=== PATIENT | male | born 1975 | race African-American/Black ===

== ENCOUNTER 2023-07-27 09:30 | Inpatient (IN) | payer OTHER ==
[~2023-07-27] VITALS: Ht 177.8 cm; Wt 104.2 kg
[2023-07-27 09:59] VITALS: PULSE 96; RESP 20; O2SAT 98
[2023-07-27 10:05] LABS: Basophils # (auto) 0.1 10 ^3/uL (0-0.2); Eosinophils # (auto) 0.1 10 ^3/uL (0-0.8); Eosinophils % (auto) 0.8 % (0.0-7.0); Hemoglobin 13.6 g/dL (13.5-17.5); Monocytes # (auto) 0.7 10 ^3/uL (0-1.3); Red Cell Distribution Width 15.6 % (11.8-14.3)
[2023-07-27 10:07] LABS: Hematocrit 41.5 % (41.0-53.0); Lymphocytes # (auto) 1.1 10 ^3/uL (0.4-5.4); Lymphocytes % (auto) 13.9 % (10.0-50.0); Mean Corpuscular Hemoglobin 26.6 pg (28.0-32.0); Mean Corpuscular Hgb Conc. 32.8 g/dL (32.0-36.0); Mean Corpuscular Volume 81.1 fL (80.0-100.0); Monocytes % (auto) 8.9 % (0.0-12.0); Neutrophils % (auto) 75.4 % (37.0-80.0); Red Blood Cells 5.11 10^6/uL (4.5-5.90)
[2023-07-27 10:16] LABS: Chloride 106 mmol/L (98-107); Potassium 3.7 mmol/L (3.5-5.1); Sodium 139 mmol/L (136-145)
[2023-07-27 10:17] LABS: Anion Gap 6 (5-15); Carbon Dioxide 27 mmol/L (20-30)
[2023-07-27 10:22] LABS: BUN/Creatinine Ratio 5.3 (10.0-20.0); Blood Urea Nitrogen 10 mg/dL (9-23); Glucose 172 mg/dL (74-106)
[2023-07-27] MEDS: ONDANSETRON HCL 4 MG/2 ML VIAL IV ONE (10:48)
[2023-07-27] MEDS: SODIUM CHLORIDE 0.9% 1,000 ML IV ONE ×2 (10:48→13:37)
[2023-07-27] MEDS: PANTOPRAZOLE 40 MG/10 ML VIAL INJ IV ONE (10:48)
[2023-07-27 12:53] LABS: Urine Bacteria None Seen /hpf (None Seen)
[2023-07-27 13:00] LABS: Urine Blood 2+ /uL (Negative); Urine Clarity Clear (Clear); Urine Color Light-Yellow (Yellow); Urine Protein, UAD 3+ (Negative); Urine Specific Gravity 1.012 (1.001-1.035); Urine Urobilinogen Normal (Negative); Urine WBC 3 /hpf (0 - 3)
[2023-07-27] MEDS ORDERED: DEXTROSE (50%) 50ML SYRG IV PRN ×2 (13:15)
[2023-07-27] MEDS ORDERED: MORPHINE SULFATE INJ 2 MG/ml SYRG IV PRN (13:15)
[2023-07-27] MEDS ORDERED: NITROGLYCERIN 0.4 MG SL TAB SL PRN (13:15)
[2023-07-27 13:50] LABS: Triglycerides 134 mg/dL (< 150)
[2023-07-27 13:51] LABS: LDL Cholesterol 155 mg/dL (< 100)
[2023-07-27 13:52] LABS: Cholesterol 223 mg/dL (< 200); HDL Cholesterol 45 mg/dL (40-59)
[2023-07-27] MEDS: SODIUM CHLORIDE 0.9% 1,000 ML IV SCH (15:35)
[2023-07-27] MEDS: METOCLOPRAMIDE HCL 5MG/ml INJ 2ml VIAL IV PRN (16:29)
[2023-07-27] MEDS ORDERED: InsuLIN REG 1unit/0.01ml Soln (100units/ml) SC SCH (17:00)
[2023-07-27] MEDS ORDERED: ACCU-CHEK COMFORT CURVE STRIP VI SCH (17:00)
[2023-07-27] MEDS: ACCU-CHEK COMFORT CURVE STRIP VI SCH (17:20)
[2023-07-27] MEDS: InsuLIN REG 1unit/0.01ml Soln (100units/ml) SC SCH (17:26)
[2023-07-27] MEDS: amLODIPine BESYLATE 5 MG TAB PO ONE (18:31)
[2023-07-27] MEDS: ONDANSETRON HCL 4 MG/2 ML VIAL IV PRN (20:17)
[2023-07-27 20:39] VITALS: PULSE 102; RESP 16; O2SAT 95
[2023-07-28 05:35] LABS: Basophils # (auto) 0.1 10 ^3/uL (0-0.2); Eosinophils # (auto) 0.2 10 ^3/uL (0-0.8); Eosinophils % (auto) 2.5 % (0.0-7.0); Hemoglobin 11.7 g/dL (13.5-17.5); Lymphocytes # (auto) 1.5 10 ^3/uL (0.4-5.4); Neutrophils # (auto) 5.5 10 ^3/uL (1.6-8.6); White Blood Cell 8.1 10^3/uL (4.4-10.8)
[2023-07-28 05:41] LABS: Basophils % (auto) 1.2 % (0.0-2.0); Hematocrit 35.9 % (41.0-53.0); Lymphocytes % (auto) 18.7 % (10.0-50.0); Mean Corpuscular Hemoglobin 26.8 pg (28.0-32.0); Mean Corpuscular Hgb Conc. 32.6 g/dL (32.0-36.0); Mean Corpuscular Volume 82.1 fL (80.0-100.0); Monocytes # (auto) 0.8 10 ^3/uL (0-1.3); Monocytes % (auto) 9.6 % (0.0-12.0); Nucleated Red Blood Cells % 0.1 %; Red Blood Cells 4.37 10^6/uL (4.5-5.90); Red Cell Distribution Width 15.3 % (11.8-14.3)
[2023-07-28 05:49] LABS: Alanine Aminotransferase 15 U/L (7-40); Albumin 2.8 g/dL (3.2-4.8); Alkaline Phosphatase 96 U/L (46-116); Anion Gap 8 (5-15); Aspartate Aminotransferase 25 U/L (13-40); Blood Urea Nitrogen 6 mg/dL (9-23); Calcium 7.9 mg/dL (8.5-10.1); Carbon Dioxide 23 mmol/L (20-30); Chloride 111 mmol/L (98-107); Glucose 100 mg/dL (74-106); Potassium 3.5 mmol/L (3.5-5.1); Sodium 142 mmol/L (136-145)
[2023-07-28 05:50] LABS: Total Protein 5.4 g/dL (5.7-8.2)
[2023-07-28 07:25] VITALS: PULSE 92; RESP 19; O2SAT 96
[2023-07-28 08:00] VITALS: PULSE 92
[2023-07-28 08:40] VITALS: BP 163/90; PULSE 92; PULSE 96; RESP 18; TEMP 98.5; O2SAT 92
[2023-07-28] MEDS: PANTOPRAZOLE 40 MG/10 ML VIAL INJ IV SCH (10:37)
[2023-07-28] MEDS: amLODIPine BESYLATE 5 MG TAB PO SCH (10:37)
[2023-07-28] MEDS: ENOXAPARIN SOD 40 MG/0.4 ML SYRINGE SC SCH (10:38)
[2023-07-28] MEDS: hydrALAZINE HCL 20 MG/ML VL IV PRN (12:16)
[2023-07-28 12:40] VITALS: BP 164/98; PULSE 101; RESP 18; TEMP 98.7; O2SAT 96
[2023-07-28 16:30] VITALS: BP 165/98; PULSE 105; RESP 18; TEMP 98.3; O2SAT 98
[2023-07-28] MEDS: SOD CHL 0.9%/ KCL 20MEQ 1,000 ML IV ONE (17:06)
[2023-07-28] MEDS: ACETAMINOPHEN 325 MG TAB PO PRN (20:14)
[2023-07-28 21:00] VITALS: BP 148/78; PULSE 96; RESP 19; TEMP 99; O2SAT 97
[2023-07-28] MEDS: METOCLOPRAMIDE HCL 10 MG TAB PO SCH (21:43)
[2023-07-29 05:00] VITALS: BP 139/72; PULSE 93; RESP 20; TEMP 99; O2SAT 98
[2023-07-29 09:00] VITALS: BP 156/86; PULSE 96; RESP 16; TEMP 98; O2SAT 97
[2023-07-29] MEDS: amLODIPine BESYLATE 5 MG TAB PO SCH (09:29)
[2023-07-29] MEDS ORDERED: METF-370 PO (12:20)
[2023-07-29] MEDS ORDERED: PIO30T PO (12:20)
[2023-07-29] MEDS ORDERED: AML5T PO (12:20)
[2023-07-29] MEDS ORDERED: ATOR20TA50 PO (12:20)
[2023-07-29] MEDS ORDERED: METO10TA4 PO (12:20)
[2023-07-29] MEDS ORDERED: CHLO25TA2 PO (12:20)
[2023-07-29] MEDS ORDERED: TEMA15CA2 PO (12:25)
== END 2023-07-29 15:03 | disposition home or self-care (01) | DRG 73 ==
LOC: ER 09:30 → TELE 13:37 → TELE-WESTW 07-28 08:16 → WEST WING 07-28 16:42
PROVIDERS: ADMIT Nurse Practitioner Family; ATTEND Nurse Practitioner Acute Care
DX: E11.43 Type 2 diabetes mellitus with diabetic autonomic (poly)neuropathy (principal); N17.0 Acute kidney failure with tubular necrosis; I13.0 Hypertensive heart and chronic kidney disease with heart failure and stage 1 through stage 4 chronic kidney disease, or unspecified chronic kidney disease; I50.40 Unspecified combined systolic (congestive) and diastolic (congestive) heart failure; I31.39 Other pericardial effusion (noninflammatory); K31.84 Gastroparesis; N18.32 Chronic kidney disease, stage 3b; E11.22 Type 2 diabetes mellitus with diabetic chronic kidney disease; E11.65 Type 2 diabetes mellitus with hyperglycemia; E66.01 Morbid (severe) obesity due to excess calories; E78.00 Pure hypercholesterolemia, unspecified; E87.6 Hypokalemia; Z68.33 Body mass index [BMI] 33.0-33.9, adult; Z91.148 Patient's other noncompliance with medication regimen for other reason; Z82.49 Family history of ischemic heart disease and other diseases of the circulatory system
CPT/HCPCS: 36415; 74176; 80048; 80053; 80061; 81001; 82962; 83036; 83930; 84443; 85025; 93005; 93306; 96361; 96374; 96375; C9113; G0378; J1815; J2405

== ENCOUNTER 2024-04-13 11:37 | Emergency (ER) | payer OTHER ==
[~2024-04-13] VITALS: Ht 182.9 cm; Wt 111.1 kg
[~2024-04-13 11:37] MED LIST: AML5T PO; ATOR20TA50 PO; CHLO25TA2 PO; METF-370 PO; METO10TA4 PO; PIO30T PO; TEMA15CA2 PO
--- NOTE | 2024-04-13 11:53 | ED.PDOC ---
GI ASSESSMENT HPI Comments 48 y/o M with PMHX of HTN, HLD, and DM presents to the ED with CC of abdominal pain. Patient states, that he has been experiencing abdominal pain with associated symptoms of nausea, vomiting, and intermittent diarrhea. Patient relays, that he has experienced similar symptoms in the past about a year ago. Patient comments that he believes symptoms are due to and kids being sick at home. Patient denies social history. Patient denies fever, chills, headache, cough, sore throat, or nasal congestion. Time Seen by MD: 11:48 Primary Care Provider: RIGOBERTO TR[place]P [place] Reviewed Notes: Nurses Notes, Medications, Allergies Allergies: Coded Allergies: NO KNOWN ALLERGIES (Unverified , 07/27/23) Home Meds Active Scripts Pantoprazole Sodium Sesquihydr (Protonix) 40 Mg Tab, 40 MG PO DAILY, #30 TAB Prov:YONATHAN LLOYD MD 04/13/24 Ondansetron Odt 4MG Tab (ZOFRAN PO) 4 Mg Tb, 4 MG PO Q8HP PRN for 7 Days, #21 TAB ODT TAB-DISSOLVE IN MOUTH, THEN SWALLOW Prov:YONATHAN LLOYD MD 04/13/24 Temazepam (Restoril) 15 Mg Cp, 1 CAP PO QPM for 7 Days, #7 CAP 1 Refill Prov:OSCAR SALINAS AGILE DEVELOPER 07/29/23 Chlorthalidone (Chlorthalidone) 25 Mg Tab, 25 MG PO DAILY for 60 Days, #60 TAB Prov:OSCAR SALINAS AGILE DEVELOPER 07/29/23 Atorvastatin Calcium (ATORVASTATIN CALCIUM) 20 Mg Tab, 20 MG PO DAILY for 60 Days, #60 TAB Prov:OSCAR SALINAS AGILE DEVELOPER 07/29/23 Pioglitazone Hydrochloride (ACTOS TABLET) 30 Mg Tb, 1 TAB PO DAILY, #90 TAB 1 Refill Prov:OSCAR SALINAS AGILE DEVELOPER 07/29/23 Metformin Hydrochloride (Metformin Hcl) 500 Mg Tab, 1 TAB PO BID, #60 TAB 3 Refills Prov:OSCAR SALINAS AGILE DEVELOPER 07/29/23 Metoclopramide HCl (Metoclopramide Hydrochlor) 10 Mg Tab, 5 MG PO Q8HR for 60 Days, #90 TAB Prov:OSCAR SALINAS AGILE DEVELOPER 07/29/23 Amlodipine Besylate (NORVASC TABLET) 5 Mg Tb, 10 MG PO DAILY for 60 Days, #120 TAB Prov:RAYMONDCECILIA GarzaMOORE NP 07/29/23 Information Source: Patient Mode of Arrival: Ambulatory Timing: Days Duration: Since onset Prehospital treatment: None Quality: None Vomitus: Watery Stool: Watery Severity: Mild Recent: None Recent Hx of: Diabetes Pain Location: Diffuse Modifying Factors: Nothing Associated sign and symptoms: Nausea, Vomiting, Diarrhea Past Medical History PAST MEDICAL HISTORY: DM, HTN Surgical History: Unknown Family History Family History: Unknown, Family hx of heart gianfranco Social History Smoker: Non-Smoker Alcohol: Rarely Drugs: Denies Drug Use Lives In: Home Constitutional: denies: chills, diaphoresis, fatigue, fever, malaise, sweats, weakness, others EENTM: denies: blurred vision, double vision, ear bleeding, ear discharge, ear drainage, ear pain, ear ringing, eye pain, eye redness, hearing loss, mouth pain, mouth swelling, nasal discharge, nose bleeding, nose congestion, nose pain, photophobia, tearing, throat pain, throat swelling, voice changes, others Respiratory: denies: cough, hemoptysis, orthopnea, SOB at rest, shortness of breath, SOB with excertion, stridor, wheezing, others Cardiovascular: denies: chest pain, dizzy spells, diaphoresis, Dyspnea on exertion, edema, irregular heart beat, left arm pain, lightheadedness, palpita tions, PND, syncope, others Gastrointestinal: reports: abdominal pain, diarrhea, nausea, poor appetite, vomiting; denies: abdomen distended, blood streaked bowels, constipated, dysphagia, difficulty swallowing, hematemesis, melena, poor fluid intake, rectal bleeding, rectal pain, others Genitourinary: denies: burning, dysuria, flank pain, frequency, hematuria, incontinence, penile discharge, penile sore, pain, testicle pain, testicle swelling, urgency, others Neurological: denies: dizziness, fainting, headache, left sided numbness, left sided weakness, numbness, paresthesia, pre-existing deficit, right sided numbness, right sided weakness, seizure, speech problems, tingling, tremors, weakness, others Musculoskeletal: denies: back pain, gout, joint pain, joint swelling, muscle pain, muscle stiffness, neck pain, others Integumetry: denies: bruises, change in color, change in hair/nails, dryness, laceration, lesions, lumps, rash, wounds, others Allergic/Immunocompromised: denies: Difficulty Healing, Frequent Infections, Hives, Itching, others Hematologic/Lymphatic: denies: anemia, blood clots, easy bleeding, easy bruising, swollen glands, others Endocrine: denies: excessive hunger, excessive sweating, excessive thirst, excessive urination, flushing, intolerance to cold, intolerance to heat, unexplained weight gain, unexplained weight loss, others Psychiatric: denies: anxiety, bipolar disorder, depression, hopeless, panic disorder, schizophrenia, sleepless, suicidal, others All Other Systems: Reviewed and Negative Physical Exam General Appearance: Mild Distress HEENT: Normal ENT Inspection, Pharynx Normal, TMs Normal Neck: Full Range of Motion, Non-Tender, Normal, Normal Inspection Respiratory: Chest Non-Tender, Lungs Clear, No Accessory Muscle Use, No Respiratory Distress, Normal Breath Sounds Cardiovascular: No Edema, No JVD, No Murmur, No Gallop, Normal Peripheral Pulses, Regular Rate/Rhythm Breast Exam: Deferred Gastrointestinal: No Organomegaly, Non Tender, No Pulsatile Mass, Normal Bowel Sounds, Soft Genitalia: Deferred Pelvic: Deferred Rectal: Deferred Extremities: No calf tenderness, Normal capillary refill, Normal inspection, Normal range of motion, Non-tender, No pedal edema Musculoskeletal : Apperance: Normal Neurologic: Alert, plug making operator II-XII nml as Tested, No Motor Deficits, Normal Affect, Normal Mood, No Sensory Deficits Cerebellar Function: Normal Reflexes: Normal Skin: Dry, Normal Color, Warm Lymphatic: No Adenopathy Was a procedure done? Was a procedure done?: No GI differential Dx Differential Diagnosis: Gastritis/PUD, Gastroenteritis, Electrolyte Imbalance, Food Poisoning, Bacterial, Viral X-Ray, Labs, Meds, VS Vital Signs Date Time Temp Pulse Resp B/P (MAP) Pulse Ox O2 Delivery O2 Flow Rate FiO2 04/13/24 15:20 99.1 98 17 169/101 (123) 98 99.1 04/13/24 15:20 169/101 04/13/24 12:30 98.0 100 17 174/105 (128) 98 98.0 04/13/24 12:30 Room Air* 0 21 04/13/24 12:24 174/105 04/13/24 12:08 99.3 98 16 190/100 (130) 95 Lab Test 04/13/24 12:01 04/13/24 11:59 04/13/24 11:58 Range/Units POC Glucose 333 H 70-106 mg/dl White Blood Count 8.7 4.4-10.8 10^3/uL Red Blood Count 4.50 4.5-5.90 10^6/uL Hemoglobin 13.1 L 13.5-17.5 g/dL Hematocrit 38.6 L 41.0-53.0 % Mean Corpuscular Volume 86.0 80.0-100.0 fL Mean Corpuscular Hemoglobin 29.2 28.0-32.0 pg Mean Corpuscular Hemoglobin Concent 34.0 32.0-36.0 g/dL Red Cell Distribution Width 14.5 H 11.8-14.3 % Platelet Count 259 140-450 10^3/uL Mean Platelet Volume 8.1 6.9-10.8 fL Neutrophils (%) (Auto) 77.3 37.0-80.0 % Lymphocytes (%) (Auto) 7.2 L 10.0-50.0 % Monocytes (%) (Auto) 14.8 H 0.0-12.0 % Eosinophils (%) (Auto) 0.1 0.0-7.0 % Basophils (%) (Auto) 0.6 0.0-2.0 % Neutrophils # (Auto) 6.7 1.6-8.6 10 ^3/uL Lymphocytes # (Auto) 0.6 0.4-5.4 10 ^3/uL Monocytes # (Auto) 1.3 0-1.3 10 ^3/uL Eosinophils # (Auto) 0 0-0.8 10 ^3/uL Basophils # (Auto) 0 0-0.2 10 ^3/uL Nucleated Red Blood Cells 0.1 % Sodium Level 135 L 136-145 mmol/L Potassium Level 4.3 3.5-5.1 mmol/L Chloride Level 101 98-107 mmol/L Carbon Dioxide Level 25 20-31 mmol/L Anion Gap 9 5-15 Blood Urea Nitrogen 31 H 9-23 mg/dL Creatinine 2.88 H 0.700-1.30 mg/dL Glomerular Filtration Rate Calc 26 >90 mL/min BUN/Creatinine Ratio 10.8 10.0-20.0 Serum Glucose 356 H 74-106 mg/dL Calcium Level 9.5 8.7-10.4 mg/dL Total Bilirubin 0.6 0.2-1.0 mg/dL Aspartate Amino Transferase (AST) 38 13-40 U/L Alanine Aminotransferase (ALT) 27 7-40 U/L Alkaline Phosphatase 134 H 46-116 U/L Total Protein 8.1 5.7-8.2 g/dL Albumin 4.2 3.2-4.8 g/dL Lipase 37 12-53 U/L Urine Color Light-yellow Yellow Urine Clarity Clear Clear Urine pH 6.5 5.0-9.0 Urine Specific [place] 1.011 1.001-1.035 Urine Protein 3+ H Negative Urine Ketones Trace Negative Urine Blood 2+ H Negative /uL Urine Nitrite Negative Negative Urine Bilirubin Negative Negative Urine Urobilinogen Normal Negative mg/dL Urine Leukocyte Esterase Negative Negative /uL Urine RBC 17 0 - 3 /hpf Urine Microscopic WBC 1 0-3 /HPF Urine Squamous Epithelial Cells None seen <5 /hpf Urine Bacteria None seen None Seen /hpf Urine Hyaline Casts Few 0 - 2 /lpf Urine Glucose 4+ H Normal mg/dL Current Medications Medications (Trade) Dose Ordered Sig/Amisha Route Start Time Stop Time Status Last Admin Ondansetron HCl (Zofran) 4 mg ONCE ONCE IV 04/13/24 12:00 04/13/24 12:01 DC 04/13/24 12:24 Clonidine HCl (Catapres Tablet) 0.2 mg ONCE ONCE PO 04/13/24 12:15 04/13/24 12:16 DC 04/13/24 12:24 CT ABD PEL: FINDINGS: Lower Chest: Unremarkable. Hepatobiliary: Hepatic steatosis. Spleen: Unremarkable. Pancreas: Unremarkable. Adrenal Glands: Unremarkable. tract: The kidneys are normal in size bilaterally without hydronephrosis or nephrolithiasis. Mild bilateral perinephric fat stranding noted. The urinary bladder is unremarkable. GI tract: The stomach is grossly normal in appearance. No evidence of small bowel obstruction. The large bowel is unremarkable. The appendix is normal. Lymphatics: No mesenteric, retroperitoneal or periportal lymphadenopathy. Vasculature: The abdominal aorta is normal in in caliber. Pelvic Organs: Unremarkable Bones/soft tissues: No acute abnormality. Stable degenerative disc disease at L3-L4 with stable mild focal depression of the adjacent endplates reflecting Schmorl's nodes. Other: None. IMPRESSION: 1. No CT evidence for acute intra-abdominal or intrapelvic process. 2. Mild symmetric bilateral perinephric fat stranding that is a nonspecific finding likely idiopathic in this patient. No hydronephrosis to suggest pyelonephritis or obstruction. 3. Hepatic steatosis. ATED BY: HELEN CHENG MD DICTATED DATE/TIME: 04/13/24 1235 SIGNED BY: HELEN CHENG MD SIGNED DATE/TIME: 04/13/24 1235 CC: The patient's CBC is within normal limits The chemistry panel is within normal limits The urine test is negative for any infection At this time, the patient was being discharged The patient had episodes of hypertension that was somewhat uncontrolled in the emergency department's The patient states that he did not take his medications this morning The patient was given clonidine 0.2 mg by mouth The patient was also given Zofran 4 mg IV push The patient was given a prescription of Zofran The patient will return to the emergency department's condition worsens Images Reviewed?: Images reviewed and evaluated by me Time of 1ST Reevaluation: 12:28 Reevaluation 1ST: Unchanged Patient Education/Counseling: Diagnosis, Treatment, Prognosis, Need For Follow Up Family Education/Counseling: No Family Present Departure 1 Departure Time of Disposition: 16:53 Impression: Primary Impression: Gastroparesis Additional Impression: Hypertensive urgency Disposition: 01 HOME / SELF CARE / HOMELESS Condition: Fair e-Prescriptions Pantoprazole Sodium Sesquihydr (Protonix) 40 Mg Tab 40 MG PO DAILY, #30 TAB Prov: YONATHAN LLOYD MD 04/13/24 Ondansetron Odt 4MG Tab (ZOFRAN PO) 4 Mg Tb 4 MG PO Q8HP PRN for 7 Days, #21 TAB ODT TAB-DISSOLVE IN MOUTH, THEN SWALLOW Prov: YONATHAN LLOYD MD 04/13/24 Discharged With: Self Critical Care Note Critical Care Time?: No Stability Stability form required: No Heart Score Heart Score: Heart Score Response (Comments) Value History N/A 0 EKG N/A 0 Age N/A 0 Risk Factors N/A 0 Troponin N/A 0 Total 0 I personally scribed for YONATHAN LLOYD MD ([email or web address]) on 04/13/24 at 11:53. Electronically submitted by Radha Eaton ([email or web address]). I personally scribed for YONATHAN LLOYD MD ([email or web address]) on 04/13/24 at 13:11. Electronically submitted by Radha Eaton [email or web address]). YONATHAN LLOYD MD Apr 13, 2024 11:53
[2024-04-13 12:16] LABS: Basophils # (auto) 0 10 ^3/uL (0-0.2); Basophils % (auto) 0.6 % (0.0-2.0); Eosinophils # (auto) 0 10 ^3/uL (0-0.8); Eosinophils % (auto) 0.1 % (0.0-7.0); Hematocrit 38.6 % (41.0-53.0); Hemoglobin 13.1 g/dL (13.5-17.5); Lymphocytes # (auto) 0.6 10 ^3/uL (0.4-5.4); Lymphocytes % (auto) 7.2 % (10.0-50.0); Mean Corpuscular Hemoglobin 29.2 pg (28.0-32.0); Monocytes # (auto) 1.3 10 ^3/uL (0-1.3); Monocytes % (auto) 14.8 % (0.0-12.0); Neutrophils # (auto) 6.7 10 ^3/uL (1.6-8.6); Neutrophils % (auto) 77.3 % (37.0-80.0); Nucleated Red Blood Cells % 0.1 %; Platelet Count (auto) 259 10^3/uL (140-450); Red Cell Distribution Width 14.5 % (11.8-14.3); White Blood Cell 8.7 10^3/uL (4.4-10.8)
[2024-04-13] MEDS: cloNIDine HCL 0.1 MG TAB PO ONE (12:24)
[2024-04-13] MEDS: ONDANSETRON HCL 4 MG/2 ML VIAL IV ONE (12:24)
--- NOTE | 2024-04-13 12:37 | DVH ---
Procedure: CT CT AB PEL WO CON-NO ORAL OR IV 04/13/2024 12:00 PM Indication: vomiting Comparison Study: CT scan dated 07/27/2023 Technique: Axial images were obtained and reformatted in coronal and sagittal planes. All CT scans at this medical facility are performed using dose modulation techniques as appropriate t o a performed exam including the following: Automated exposure control was utilized; adjustment of th e MA and/or KV according to patient size; and use of iterative reconstruction technique. CT Dose: CTDI volume is 25 mGy. Dose-length product is 1470 mGy*cm FINDINGS: Lower Chest: Unremarkable. Hepatobiliary: Hepatic steatosis. Spleen: Unremarkable. Pancreas: Unremarkable. Adrenal Glands: Unremarkable. tract: The kidneys are normal in size bilaterally without hydronephrosis or nephrolithiasis. Mild bilateral perinephric fat stranding noted. The urinary bladder is unremarkable. GI tract: The stomach is grossly normal in appearance. No evidence of small bowel obstruction. The la rge bowel is unremarkable. The appendix is normal. Lymphatics: No mesenteric, retroperitoneal or periportal lymphadenopathy. Vasculature: The abdominal aorta is normal in in caliber. Pelvic Organs: Unremarkable Bones/soft tissues: No acute abnormality. Stable degenerative disc disease at L3-L4 with stable mild focal depression of the adjacent endplates reflecting Schmorl's nodes. Other: None. IMPRESSION: 1. No CT evidence for acute intra-abdominal or intrapelvic process. 2. Mild symmetric bilateral perinephric fat stranding that is a nonspecific finding likely idiopathic in this patient. No hydronephrosis to suggest pyelonephritis or obstruction. 3. Hepatic steatosis.
[2024-04-13 12:38] LABS: Alanine Aminotransferase 27 U/L (7-40); Albumin 4.2 g/dL (3.2-4.8); Anion Gap 9 (5-15); Aspartate Aminotransferase 38 U/L (13-40); BUN/Creatinine Ratio 10.8 (10.0-20.0); Calcium 9.5 mg/dL (8.7-10.4); Carbon Dioxide 25 mmol/L (20-31); Chloride 101 mmol/L (98-107); Lipase 37 U/L (12-53); Potassium 4.3 mmol/L (3.5-5.1)
[2024-04-13 12:39] LABS: Alkaline Phosphatase 134 U/L (46-116); Bilirubin, Total 0.6 mg/dL (0.2-1.0); Blood Urea Nitrogen 31 mg/dL (9-23); Glucose 356 mg/dL (74-106); Sodium 135 mmol/L (136-145); Total Protein 8.1 g/dL (5.7-8.2)
[2024-04-13 15:13] LABS: Urine Bacteria None Seen /hpf (None Seen)
[2024-04-13 15:27] LABS: Urine Blood 2+ /uL (Negative); Urine Clarity Clear (Clear); Urine Color Light-Yellow (Yellow); Urine Hyaline Cast FEW /lpf (0 - 2); Urine Protein, UAD 3+ (Negative); Urine Specific Gravity 1.011 (1.001-1.035); Urine Squamous Epithelial Cell None Seen /hpf (<5); Urine Urobilinogen Normal (Negative); Urine WBC 1 /HPF (0-3); Urine pH 6.5 (5.0-9.0)
[2024-04-13] MEDS ORDERED: ZOFR4T PO (16:53)
[2024-04-13] MEDS ORDERED: PANT40TA2 PO (16:53)
[2024-04-13 17:02] VITALS: BP 101/68; PULSE 97; RESP 17; TEMP 97.9; O2SAT 99
== END 2024-04-13 17:04 | disposition home or self-care (01) ==
LOC: ER 11:37
DX: K31.84 Gastroparesis (principal); I16.0 Hypertensive urgency; E11.9 Type 2 diabetes mellitus without complications; E78.5 Hyperlipidemia, unspecified; Z79.84 Long term (current) use of oral hypoglycemic drugs; Z79.899 Other long term (current) drug therapy
CPT/HCPCS: 36415; 74176; 80053; 81001; 82962; 83690; 85025; 96374; 99285; J2405

== ENCOUNTER 2024-12-22 18:29 | Inpatient (IN) | payer OTHER ==
[~2024-12-22] VITALS: Ht 177.8 cm; Wt 105.1 kg
[~2024-12-22 18:29] MED LIST changes: +PANT40TA2 PO; +ZOFR4T PO
[2024-12-22] MEDS: PROCHLORPERAZINE EDISYLATE 5 MG/ML 2ML VIAL IV ONE (19:00)
--- NOTE | 2024-12-22 19:08 | ED.PDOC ---
GI ASSESSMENT HPI Comments 49y M who presents to the ED for chief complaint of abdominal pain. Pt states he has been having nausea and vomiting since last night PM. Pt states has had 1x episode of hematemesis today and came to the ED for further evaluation. Pt now in the ED, otherwise denies any associated abdominal pain and states he feels very weak. Pt otherwise denies any recent sick contacts or changes to diet. Pt has noted history of DM with history of gastroparesis, HTN, HLD and stage 4 CKD. Pt otherwise denies any other symptoms at this time. Chief Complaint: Nausea/Vomiting Time Seen by MD: 19:03 Primary Care Provider: calvin Reviewed Notes: Nurses Notes, Medications, Allergies Allergies: Coded Allergies: NO KNOWN ALLERGIES (Unverified , 07/27/23) Home Meds Active Scripts Pantoprazole Sodium Sesquihydr (Protonix) 40 Mg Tab, 40 MG PO DAILY, #30 TAB Prov:YONATHAN LLOYD MD 04/13/24 Ondansetron Odt 4MG Tab (ZOFRAN PO) 4 Mg Tb, 4 MG PO Q8HP PRN for 7 Days, #21 TAB ODT TAB-DISSOLVE IN MOUTH, THEN SWALLOW Prov:YONATHAN LLOYD MD 04/13/24 Temazepam (Restoril) 15 Mg Cp, 1 CAP PO QPM for 7 Days, #7 CAP 1 Refill Prov:OSCAR SALINAS ENTRY LEVEL PROGRAMMER 07/29/23 Chlorthalidone (Chlorthalidone) 25 Mg Tab, 25 MG PO DAILY for 60 Days, #60 TAB Prov:OSCAR SALINAS ENTRY LEVEL PROGRAMMER 07/29/23 Atorvastatin Calcium (ATORVASTATIN CALCIUM) 20 Mg Tab, 20 MG PO DAILY for 60 Days, #60 TAB Prov:OSCAR SALINAS ENTRY LEVEL PROGRAMMER 07/29/23 Pioglitazone Hydrochloride (ACTOS TABLET) 30 Mg Tb, 1 TAB PO DAILY, #90 TAB 1 Refill Prov:OSCAR SALINAS ENTRY LEVEL PROGRAMMER 07/29/23 Metformin Hydrochloride (Metformin Hcl) 500 Mg Tab, 1 TAB PO BID, #60 TAB 3 Refills Prov:OSCAR SALINAS ENTRY LEVEL PROGRAMMER 07/29/23 Metoclopramide HCl (Metoclopramide Hydrochlor) 10 Mg Tab, 5 MG PO Q8HR for 60 Days, #90 TAB Prov:OSCAR SALINAS ENTRY LEVEL PROGRAMMER 07/29/23 Amlodipine Besylate (NORVASC TABLET) 5 Mg Tb, 10 MG PO DAILY for 60 Days, #120 TAB Prov:OSCAR SALINAS NP 07/29/23 Information Source: Patient Mode of Arrival: Ambulatory Brought in by: self Timing: Hours Duration: Since onset Prehospital treatment: None Quality: None Vomitus: Bright Red Bood Stool: Normal Severity: Moderate Recent: None Recent Hx of: Diabetes Pain Location: None Modifying Factors: Nothing Associated sign and symptoms: Nausea, Vomiting, Hematemesis Past Medical History PAST MEDICAL HISTORY: CKF, DM, High Lipids, HTN Surgical History (Other): R eye surgery, mike gangrene Family History Family History: Family hx of heart gianfranco Social History Smoker: Non-Smoker Alcohol: Rarely Drugs: Denies Drug Use Lives In: Home Constitutional: reports: malaise, weakness; denies: chills, diaphoresis, fatigue, fever, sweats, others EENTM: denies: blurred vision, double vision, ear bleeding, ear discharge, ear drainage, ear pain, ear ringing, eye pain, eye redness, hearing loss, mouth pain, mouth swelling, nasal discharge, nose bleeding, nose congestion, nose pain, photophobia, tearing, throat pain, throat swelling, voice changes, others Respiratory: denies: cough, hemoptysis, orthopnea, SOB at rest, shortness of breath, SOB with excertion, stridor, wheezing, others Cardiovascular: denies: chest pain, dizzy spells, diaphoresis, Dyspnea on exertion, edema, irregular heart beat, left arm pain, lightheadedness, palpitations, PND, syncope, others Gastrointestinal: reports: hematemesis, nausea, vomiting; denies: abdomen distended, abdominal pain, blood streaked bowels, constipated, diarrhea, dysphagia, difficulty swallowing, melena, poor appetite, poor fluid intake, rectal bleeding, rectal pain, others Genitourinary: denies: burning, dysuria, flank pain, frequency, hematuria, incontinence, penile discharge, penile sore, pain, testicle pain, testicle swelling, urgency, others Neurological: denies: dizziness, fainting, headache, left sided numbness, left sided weakness, numbness, paresthesia, pre-existing deficit, right sided numbness, right sided weakness, seizure, speech problems, tingling, tremors, weakness, others Musculoskeletal: denies: back pain, gout, joint pain, joint swelling, muscle pain, muscle stiffness, neck pain, others Integumetry: denies: bruises, change in color, change in hair/nails, dryness, laceration, lesions, lumps, rash, wounds, others Allergic/Immunocompromised: denies: Difficulty Healing, Frequent Infections, Hives, Itching, others Hematologic/Lymphatic: denies: anemia, blood clots, easy bleeding, easy bruising, swollen glands, others Endocrine: denies: excessive hunger, excessive sweating, excessive thirst, excessive urination, flushing, intolerance to cold, intolerance to heat, unexplained weight gain, unexplained weight loss, others Psychiatric: denies: anxiety, bipolar disorder, depression, hopeless, panic di sorder, schizophrenia, sleepless, suicidal, others All Other Systems: Reviewed and Negative Physical Exam General Appearance: Moderate Distress HEENT: Normal ENT Inspection, Pharynx Normal, TMs Normal Neck: Full Range of Motion, Non-Tender, Normal, Normal Inspection Respiratory: Chest Non-Tender, Lungs Clear, No Accessory Muscle Use, No Respiratory Distress, Normal Breath Sounds Cardiovascular: No Edema, No JVD, No Murmur, No Gallop, Normal Peripheral Pulses, Regular Rate/Rhythm Breast Exam: Deferred Gastrointestinal: No Organomegaly, Non Tender, No Pulsatile Mass, Normal Bowel Sounds, Soft Genitalia: Deferred Pelvic: Deferred Rectal: Deferred Extremities: No calf tenderness, Normal capillary refill, No pedal edema Musculoskeletal : Apperance: Normal Neurologic: Alert, machine ii cutter II-XII nml as Tested, Motor Weakness, Normal Affect, Normal Mood, No Sensory Deficits Cerebellar Function: Normal Reflexes: Normal Skin: Dry, Normal Color, Warm Lymphatic: No Adenopathy Was a procedure done? Was a procedure done?: No GI differential Dx Differential Diagnosis: Esophageal rupture, Esophagitis, Gastritis/PUD, Gastroenteritis, GI hemorrhage, Hernia, Inflammatory BD, Pancreatitis, UTI, Dehydration, Electrolyte Imbalance, Food Poisoning, Bacterial, Viral, Stress Ulcer X-Ray, Labs, Meds, VS Vital Signs Date Time Temp Pulse Resp B/P (MAP) Pulse Ox O2 Delivery O2 Flow Rate FiO2 12/22/24 18:44 98.4 116 18 173/99 99 98.4 Lab Test 12/22/24 18:56 Range/Units White Blood Count 14.6 H 4.4-10.8 10^3/uL Red Blood Count 4.42 L 4.5-5.90 10^6/uL Hemoglobin 12.0 L 13.5-17.5 g/dL Hematocrit 36.1 L 41.0-53.0 % Mean Corpuscular Volume 81.8 80.0-100.0 fL Mean Corpuscular Hemoglobin 27.2 L 28.0-32.0 pg Mean Corpuscular Hemoglobin Concent 33.3 32.0-36.0 g/dL Red Cell Distribution Width 15.3 H 11.8-14.3 % Platelet Count 336 140-450 10^3/uL Mean Platelet Volume 8.1 6.9-10.8 fL Neutrophils (%) (Auto) 89.5 H 37.0-80.0 % Lymphocytes (%) (Auto) 6.1 L 10.0-50.0 % Monocytes (%) (Auto) 3.0 0.0-12.0 % Eosinophils (%) (Auto) 0.2 0.0-7.0 % Basophils (%) (Auto) 1.2 0.0-2.0 % Neutrophils # (Auto) 13.1 H 1.6-8.6 10 ^3/uL Lymphocytes # (Auto) 0.9 0.4-5.4 10 ^3/uL Monocytes # (Auto) 0.4 0-1.3 10 ^3/uL Eosinophils # (Auto) 0 0-0.8 10 ^3/uL Basophils # (Auto) 0.2 0-0.2 10 ^3/uL Nucleated Red Blood Cells 0.0 % Sodium Level 144 136-145 mmol/L Potassium Level 4.3 3.5-5.1 mmol/L Chloride Level 107 98-107 mmol/L Carbon Dioxide Level 20 20-31 mmol/L Anion Gap 17 H 5-15 Blood Urea Nitrogen 31 H 9-23 mg/dL Creatinine 3.17 H 0.700-1.30 mg/dL Glomerular Filtration Rate Calc 23 >90 mL/min BUN/Creatinine Ratio 9.8 L 10.0-20.0 Serum Glucose 309 H 74-106 mg/dL Calcium Level 9.3 8.7-10.4 mg/dL Total Bilirubin 0.7 0.2-1.0 mg/dL Aspartate Amino Transferase (AST) 21 13-40 U/L Alanine Aminotransferase (ALT) 26 7-40 U/L Alkaline Phosphatase 120 H 46-116 U/L Total Protein 8.2 5.7-8.2 g/dL Albumin 4.5 3.2-4.8 g/dL The patient's CBC shows an elevated white blood cell count of 14.6 The chemistry panel shows a BUN of 31 and a creatinine of 3.17 The patient is hyperglycemic at 309 The CAT scan of the abdomen and pelvis shows: IMPRESSION: Mild wall thickening of the ascending colon,colon over the splenic flexure and rectum. Correlate for colitis. Mild gastric wall thickening which May due to inadequate distention with mild gastritis not excluded. Endplate degenerative changes at L3-L4 with vacuum disc phenomenon schmorl nodes. Underlying infectious process can not be completely excluded but thought less likely. At this time, the patient is being started on Flagyl The patient understands and agrees with the management The patient is currently having some vomiting. The patient was given Compazine 10 mg IV push The patient was given Protonix 40 mg IV push Images Reviewed?: Images reviewed and evaluated by me Time of 1ST Reevaluation: 19:35 Reevaluation 1ST: Unchanged Patient Education/Counseling: Diagnosis, Treatment, Prognosis Family Education/Counseling: No Family Present SEPSIS Sepsis Screen Date sepsis recognized/suspect: Dec 22, 2024 Time Sepsis recognized/suspect: 1839 Recent Procedure: No On Antibiotic Therapy: No Respiratory Rate >20: No Heart Rate >90: Yes Temp<36 C (96.8 F) or >38.3 C: No SBP <90 or MAP <65 mmHG: No New Acute Mental Status Change: No Is the patient on CPAP, BIPAP,: No Physician Orders Urinalysis (12/22/24 18:51) Heplock Iv (12/22/24 18:51) Order Picker/Assembler (12/22/24 18:51) Blood Pressure (12/22/24 18:51) Pulse Oximetry (12/22/24 18:51) Ct Ab Pel Wo Con-No Oral Or Iv (12/22/24 19:01) Vital Signs Date Time Temp Pulse Resp B/P (MAP) Pulse Ox O2 Delivery O2 Flow Rate FiO2 12/22/24 18:44 98.4 116 18 173/99 99 98.4 Laboratory Tests Test 12/22/24 18:56 White Blood Count 14.6 10^3/uL (4.4-10.8) H Departure 1 Departure Time of Disposition: 20:10 Impression: Primary Impression: Intractable vomiting Additional Impressions: Acute colitis Dehydration Disposition: ADMITTED INPATIENT Admit to: Med Surg Condition: Fair Critical Care Note Critical Care Time?: No Stability Stability form required: Yes Unstable for transfer: ED Physician Assesment (Clinical assesment) Heart Score Heart Score: Heart Score Response (Comments) Value History N/A 0 EKG N/A 0 Age N/A 0 Risk Factors N/A 0 Troponin N/A 0 Total 0 I personally scribed for YONATHAN LLOYD MD ([email or web address]) on 12/22/24 at 19:08. Electronically submitted by Patricia POLANCO). YONATHAN LLOYD MD Dec 22, 2024 19:08
[2024-12-22 19:12] LABS: Hematocrit 36.1 % (41.0-53.0); Hemoglobin 12.0 g/dL (13.5-17.5); Mean Corpuscular Hemoglobin 27.2 pg (28.0-32.0); Mean Corpuscular Volume 81.8 fL (80.0-100.0); Nucleated Red Blood Cells % 0.0 %
[2024-12-22 19:28] LABS: Alanine Aminotransferase 26 U/L (7-40); Albumin 4.5 g/dL (3.2-4.8); Anion Gap 17 (5-15); BUN/Creatinine Ratio 9.8 (10.0-20.0); Calcium 9.3 mg/dL (8.7-10.4); Carbon Dioxide 20 mmol/L (20-31); Chloride 107 mmol/L (98-107); Potassium 4.3 mmol/L (3.5-5.1); Sodium 144 mmol/L (136-145)
[2024-12-22 19:29] LABS: Bilirubin, Total 0.7 mg/dL (0.2-1.0)
[2024-12-22 19:31] LABS: Alkaline Phosphatase 120 U/L (46-116); Blood Urea Nitrogen 31 mg/dL (9-23); Glucose 309 mg/dL (74-106); Total Protein 8.2 g/dL (5.7-8.2)
--- NOTE | 2024-12-22 20:05 | DVH ---
Exam: CT CT AB PEL WO CON-NO ORAL OR IV History: pain Comparison Study: CT CT AB PEL WO CON-NO ORAL OR IV on DOS: 04/13/24, CT CT AB PEL WO CON-NO ORAL OR I V on DOS: 07/27/23 TECHNIQUE: Multidetector CT of the abdomen pelvis without IV contrast. Axial, coronal and sagittal mu ltiplanar reformats were obtained from the axial data set by the technologist. Radiation Dose Information: CT Dose: CTDI volume is 22.91 mGy. Dose-length product is 1295.49 mGy*cm FINDINGS: Bibasilar atelectasis. Partially visualized heart is unremarkable. Liver, spleen, gallbladder, pancreas and adrenal glands are unremarkable. Small splenules are noted a djacent to the spleen. Mild nonspecific bilateral perirenal fat stranding. Otherwise, kidneys, ureters and urinary bladder u nremarkable. Prostate is unremarkable. Mild gaseous distention of the distal esophagus. Mild gastric wall thickening. Small bowel loops are unremarkable. Appendix is unremarkable. Mild wall thickening of the ascending colon with mild wall t hickening of the colon over the splenic flexure. Mild rectal wall thickening. No evidence of intraperitoneal free air or free fluid. No evidence of aortic aneurysm. No significant lymphadenopathy. Minimal body wall edema. Endplate degenerative changes at L3-L4 with vacuum disc phenomenon schmorl n odes. Sclerotic focus of the left acetabulum which may represent a small bone island with a blastic l esion not excluded. IMPRESSION: Mild wall thickening of the ascending colon,colon over the splenic flexure and rectum. Correlate for colitis. Mild gastric wall thickening which May due to inadequate distention with mild gastritis not excluded. Endplate degenerative changes at L3-L4 with vacuum disc phenomenon schmorl nodes. Underlying infectio us process can not be completely excluded but thought less likely.
--- NOTE | 2024-12-22 21:22 | DVHHPRES ---
History of Present Illness Resident Creating Document: ARTIE GARCIA RESIDENT History of Present Illness This is a 49-year-old male with past medical history of COPD, hypertension, diabetes mellitus, hyperlipidemia, CKD, presented to the ER with chief complain of vomiting. Patient report 2 episodes of vomiting since morning, vomitus contained food content, no blood seen. He also complains of associated constipation for the last 5 days, but has been able to pass gas. He had similar 3-4 episodes in the past, which were associated with loss of consciousness. Patient did not report loss of consciousness during this episode. 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 Denies abdominal pain, fever, chills. Previous hospitalization: 2 years ago for gastroparesis PMHx: COPD, hypertension, diabetes mellitus, hyperlipidemia, CKD PSHx: Retinal detachment surgery, surgical debridement for scrotal gangrene 5 years ago Family history: Father has history of prostatic carcinoma Social history: Denies smoking, alcohol, drug abuse. Lives in home with family. Full code. Next of kin . Home medication: Amlodipine 5 mg, atorvastatin 20 mg, chlorthalidone 25, metoclopramide 5 mg, Zofran, pantoprazole 40, pioglitazone, Trulicity, insulin, lisinopril 20 Allergic history: No known allergies The patient was examined at bedside today. Vitals show tachycardia. Patient is in visible discomfort due to nausea and retching, he is admitted for further evaluation and management. Review of Systems Gastrointestinal: Nausea, Vomiting Allergies: Coded Allergies: NO KNOWN ALLERGIES (Unverified , 07/27/23) Exam Vital Signs Vital Signs Date Time Temp Pulse Resp B/P (MAP) Pulse Ox O2 Delivery O2 Flow Rate FiO2 12/22/24 18:44 98.4 116 18 173/99 99 98.4 Exam General: Patient is in visible discomfort due to nausea, vomiting. Patient alert and oriented in person, place and time. Patient following commands. HEENT: Normocephalic, atraumatic, moist mucous membranes Respiratory/pulmonary: Clear lungs bilaterally, vesicular murmurs present in almost all lung peter, no associated crackles or wheezes. Cardiovascular: Normal heart sounds S1 and S2 with no associated murmurs Abdomen: Mild abdominal tenderness, mildly reduced bowel sounds Extremities: There is no peripheral edema present at the lower extremities. Skin: No rashes or pruritus, there is no sacral edema present at this time. Neurological: Intact cranial nerves with no focal neurologic deficits Labs/Xrays Labs Test 12/22/24 18:56 Range/Units White Blood Count 14.6 H 4.4-10.8 10^3/uL Red Blood Count 4.42 L 4.5-5.90 10^6/uL Hemoglobin 12.0 L 13.5-17.5 g/dL Hematocrit 36.1 L 41.0-53.0 % Mean Corpuscular Volume 81.8 80.0-100.0 fL Mean Corpuscular Hemoglobin 27.2 L 28.0-32.0 pg Mean Corpuscular Hemoglobin Concent 33.3 32.0-36.0 g/dL Red Cell Distribution Width 15.3 H 11.8-14.3 % Platelet Count 336 140-450 10^3/uL Mean Platelet Volume 8.1 6.9-10.8 fL Neutrophils (%) (Auto) 89.5 H 37.0-80.0 % Lymphocytes (%) (Auto) 6.1 L 10.0-50.0 % Monocytes (%) (Auto) 3.0 0.0-12.0 % Eosinophils (%) (Auto) 0.2 0.0-7.0 % Basophils (%) (Auto) 1.2 0.0-2.0 % Neutrophils # (Auto) 13.1 H 1.6-8.6 10 ^3/uL Lymphocytes # (Auto) 0.9 0.4-5.4 10 ^3/uL Monocytes # (Auto) 0.4 0-1.3 10 ^3/uL Eosinophils # (Auto) 0 0-0.8 10 ^3/uL Basophils # (Auto) 0.2 0-0.2 10 ^3/uL Nucleated Red Blood Cells 0.0 % Sodium Level 144 136-145 mmol/L Potassium Level 4.3 3.5-5.1 mmol/L Chloride Level 107 98-107 mmol/L Carbon Dioxide Level 20 20-31 mmol/L Anion Gap 17 H 5-15 Blood Urea Nitrogen 31 H 9-23 mg/dL Creatinine 3.17 H 0.700-1.30 mg/dL Glomerular Filtration Rate Calc 23 >90 mL/min BUN/Creatinine Ratio 9.8 L 10.0-20.0 Serum Glucose 309 H 74-106 mg/dL Calcium Level 9.3 8.7-10.4 mg/dL Total Bilirubin 0.7 0.2-1.0 mg/dL Aspartate Amino Transferase (AST) 21 13-40 U/L Alanine Aminotransferase (ALT) 26 7-40 U/L Alkaline Phosphatase 120 H 46-116 U/L Total Protein 8.2 5.7-8.2 g/dL Albumin 4.5 3.2-4.8 g/dL SEPSIS Sepsis Screen Date sepsis recognized/suspect: Dec 22, 2024 Time Sepsis recognized/suspect: 1839 Recent Procedure: No On Antibiotic Therapy: No Respiratory Rate >20: No Heart Rate >90: Yes Temp<36 C (96.8 F) or >38.3 C: No SBP <90 or MAP <65 mmHG: No New Acute Mental Status Change: No Is the patient on CPAP, BIPAP,: No Physician Orders Urinalysis (12/22/24 18:51) Heplock Iv (12/22/24 18:51) Packing Supervisor (12/22/24 18:51) Blood Pressure (12/22/24 18:51) Pulse Oximetry (12/22/24 18:51) Ct Ab Pel Wo Con-No Oral Or Iv (12/22/24 19:01) Vital Signs Date Time Temp Pulse Resp B/P (MAP) Pulse Ox O2 Delivery O2 Flow Rate FiO2 12/22/24 18:44 98.4 116 18 173/99 99 98.4 Laboratory Tests Test 12/22/24 18:56 White Blood Count 14.6 10^3/uL (4.4-10.8) H Assessment/Plan Assessment/Plan Severe Sepsis due to Acute infectious colitis CT shows Mild wall thickening of the ascending colon,colon over the splenic flexure and rectum. Lactic acidosis, leukocytosis Blood culture ordered Ordered C diff IV ceftriaxone, metronidazole IV NS bolus and maintenance NPO for bowel rest; advance as tolerated Gastritis CT shows gastric wall thickening Continue Protonix 40 mg daily Avoid foods Triggers like spicy, acidic, fried, and fatty foods. Limit Caffeine, highly processed foods and sugars. Discussed incorporating High-Fiber diet and staying hydrated. 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 Full code DISPOSITION: Med/surge Patient's status and plan discussed with the patient. Case discussed with Dr. Hi Plan discussed with: Patient, Spouse, Other (Nurses) Date of Service: Dec 22, 2024 Billing Provider: CHERIE CAMPUZANO MD Common Visit Codes: [id number] INP/OBS CARE (HIGH) Secondary Visit Codes: [id number] CARE PLAN 30 MINUTES ARTIE GARCIA RESIDENT Dec 22, 2024 21:22 ELLIS NEAL RESIDENT Dec 23, 2024 06:39
[2024-12-22 22:04] LABS: Triglycerides 71.0 mg/dL (< 150)
[2024-12-22 22:05] LABS: INR 1.06 (0.9-1.15); Magnesium 2.1 mg/dL (1.6-2.6); Partial Thromboplastin Time 26.5 SEC (24.5-34.5); Prothrombin Time 11.2 sec (9.3-11.8)
[2024-12-22 22:06] LABS: Cholesterol 133.0 mg/dL (< 200); HDL Cholesterol 43.0 mg/dL (40-59)
[2024-12-22 22:13] LABS: Ferritin 213.6 ng/mL (22-322)
[2024-12-22 22:16] LABS: Iron 26.0 ug/dL (65-175); Total Iron Binding Capacity 233.0 ug/dL (250-425)
[2024-12-22 22:24] LABS: Lipase 44.0 U/L (12-53)
[2024-12-22 22:27] LABS: Lactic Acid w/Reflex 2.7 mmol/L (0.4-2.0)
[2024-12-22] MEDS ORDERED: DEXTROSE (50%) 50ML SYRG IV PRN (22:30)
[2024-12-22] MEDS: SODIUM CHLORIDE 0.9% 500 ML IV ONE ×2 (23:02→23:03)
[2024-12-22] MEDS: ONDANSETRON HCL 4 MG/2 ML VIAL IV PRN (23:11)
[2024-12-22] MEDS: METOCLOPRAMIDE HCL 5MG/ml INJ 2ml VIAL IV SCH (23:12)
[2024-12-22] MEDS: ENOXAPARIN SOD 40 MG/0.4 ML SYRINGE SC SCH (23:13)
[2024-12-22 23:30] LABS: Free T4 (Free Thyroxine) 1.32 ng/dL (0.89-1.76)
[2024-12-22] MEDS: PANTOPRAZOLE 40 MG/10 ML VIAL INJ IV ONE (23:34)
[2024-12-23] VITALS (15 sets, daily range): BP systolic 123–194; BP diastolic 92–112; PULSE 112–123; RESP 17–20; TEMP 97.8–99.2; O2SAT 94–99
[2024-12-23] MEDS: SODIUM CHLORIDE 0.9% 1,000 ML IV SCH ×2 (00:22→18:55)
[2024-12-23] MEDS: FLEET ENEMA(ADULT) 135 ML PR ONE (02:23)
[2024-12-23] MEDS: hydrALAZINE HCL 20 MG/ML VL IV ONE (02:57)
[2024-12-23 04:07] LABS: Hematocrit 34.8 % (41.0-53.0); Hemoglobin 11.4 g/dL (13.5-17.5); Mean Corpuscular Hemoglobin 27.0 pg (28.0-32.0); Mean Corpuscular Volume 82.6 fL (80.0-100.0); Nucleated Red Blood Cells % 0.0 %
[2024-12-23 04:10] LABS: COVID19 ANTIGEN SOFIA FIA NEGATIVE (NEGATIVE)
[2024-12-23 04:29] LABS: Alanine Aminotransferase 23 U/L (7-40); Albumin 4.5 g/dL (3.2-4.8); Alkaline Phosphatase 112 U/L (46-116); Anion Gap 15 (5-15); BUN/Creatinine Ratio 8.9 (10.0-20.0); Calcium 9.0 mg/dL (8.7-10.4); Carbon Dioxide 22 mmol/L (20-31); Potassium 4.2 mmol/L (3.5-5.1)
[2024-12-23 04:30] LABS: Bilirubin, Total 0.6 mg/dL (0.2-1.0)
[2024-12-23 04:36] LABS: Blood Urea Nitrogen 29 mg/dL (9-23); Chloride 109 mmol/L (98-107); Glucose 291 mg/dL (74-106); Sodium 146 mmol/L (136-145); Total Protein 8.5 g/dL (5.7-8.2)
[2024-12-23 05:14] LABS: Urine Protein, UAD 3+ (Negative)
[2024-12-23 05:27] LABS: Amphetamine Screen, Urine Neg (NEGATIVE); Barbiturate Scree,Urine Neg (NEGATIVE); Benzodiazephine Screen, Urine Neg (NEGATIVE); Cannabinoid Screen, Urine Neg (NEGATIVE); Cocaine Screen, Urine Neg (NEGATIVE); Opiate Scree,Urine Neg (NEGATIVE); Phencyclidine Screen, Urine Neg (NEGATIVE)
[2024-12-23] MEDS: ACCU-CHEK COMFORT CURVE STRIP VI SCH ×2 (06:23→11:41)
[2024-12-23] MEDS: INSULIN LANTUS (GLARGINE) 1 /0.01ml (100units/ml) SC SCH (06:32)
[2024-12-23] MEDS: InsuLIN REG 1unit/0.01ml Soln (100units/ml) SC SCH ×2 (06:32→11:44)
[2024-12-23] MEDS ORDERED: SOD CHL 0.45% 1,000 ML IV SCH (06:45)
[2024-12-23] MEDS: SODIUM CHLORIDE 0.9% 1,000 ML IV ONE ×2 (07:30→10:37)
[2024-12-23] MEDS ORDERED: CHLORTHALIDONE 25 MG TAB PO SCH (08:00)
[2024-12-23] MEDS ORDERED: DEXTROSE (50%) 50ML SYRG IV PRN (09:00)
[2024-12-23] MEDS: PANTOPRAZOLE 40 MG/10 ML VIAL INJ IV SCH (09:04)
[2024-12-23] MEDS: INSULIN LANTUS (GLARGINE) 1 /0.01ml (100units/ml) SC ONE (10:30)
[2024-12-23] MEDS: METOCLOPRAMIDE HCL 5MG/ml INJ 2ml VIAL IV ONE (10:43)
[2024-12-23] MEDS: ALBUTEROL SULF 2.5 MG/0.5ML(0.5%) NEB SOLN NEB SCH (13:17)
[2024-12-23] MEDS: IPRATROPIUM BROM 0.5 MG/2.5ML INH SOL NEB SCH (13:17)
[2024-12-23] MEDS: METOCLOPRAMIDE HCL 5MG/ml INJ 2ml VIAL IV SCH ×2 (14:25)
[2024-12-23] MEDS ORDERED: hydrALAZINE HCL 20 MG/ML VL IV PRN (16:00)
--- NOTE | 2024-12-23 18:31 | DVH ---
CHEST RADIOGRAPH Indication: SOB Technique: Single frontal view of the chest was obtained Comparison: None FINDINGS: The cardiac silhouette is enlarged. The lungs demonstrate perihilar airspace opacities. The pulmonary vasculature is prominent. There is no pleural effusion. There is no pneumothorax. IMPRESSION: Cardiomegaly with pulmonary vascular congestion and bilateral perihilar airspace opacities.
--- NOTE | 2024-12-23 19:28 | DVHPNRES ---
Progress Note Date Seen: Dec 23, 2024 Resident Creating Document: SAM NIÑO RESIDENT Medical Necessity Reason Pt with a Central, PICC or Fol: No Subjective Review of Systems This is a 49-year-old male with past medical history of systolic heart failure with EF 25%, hypertension, diabetes mellitus, hyperlipidemia, CKD, presented to the ER with chief complain of vomiting. Patient report 2 episodes of vomiting since morning, vomitus contained food content, no blood seen. He also complains of associated constipation for the last 5 days, but has been able to pass gas. He had similar 3-4 episodes in the past, which were associated with loss of consciousness. Patient did not report loss of consciousness during this episode. 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 Denies abdominal pain, fever, chills. Previous hospitalization: 2 years ago for gastroparesis PMHx: COPD, hypertension, diabetes mellitus, hyperlipidemia, CKD stage IV, not on dialysis.systolic heart failure with EF 25%, PSHx: Retinal detachment surgery, surgical debridement for scrotal gangrene 5 years ago Family history: Father has history of prostatic carcinoma Social history: Denies smoking, alcohol, drug abuse. Lives in home with family. Full code. Next of kin . Home medication: Amlodipine 5 mg, atorvastatin 20 mg, chlorthalidone 25, metoclopramide 5 mg, Zofran, pantoprazole 40, pioglitazone, Trulicity, insulin, lisinopril 20 Allergic history: No known allergies The patient was examined at bedside today. Overnight events were reviewed. The patient reports improvement in his symptoms, no nausea or vomiting since morning. The patient was hungry in the morning. Clear liquid diet was started. No new complaints reported. Objective vital signs Vital Sign Date Time Temp Pulse Resp B/P (MAP) Pulse Ox O2 Delivery O2 Flow Rate FiO2 12/23/24 18:51 112 18 97 12/23/24 17:40 176/95 12/23/24 16:42 98.3 98.3 12/23/24 13:11 Room Air* 0 21 medications Current Medications Medications Dose Ordered Sig/Amisha Route Start Time Stop Time Status Last Admin Dose Admin Enoxaparin Sodium 40 mg DAILY SC 12/22/24 22:00 12/23/24 10:43 40 MG Ceftriaxone Sodium 50 ml @ 100 mls/hr DAILY@2200 IV 12/23/24 22:00 Metronidazole 100 ml @ 100 mls/hr Q8HR IV 12/22/24 22:00 12/23/24 14:25 100 MLS/HR Atorvastatin Calcium 20 mg HS PO 12/23/24 22:00 Pantoprazole Sodium 40 mg DAILY IV 12/23/24 10:00 12/23/24 09:04 40 MG Insulin Glargine 15 units QAM SC 12/23/24 07:00 12/23/24 06:32 15 UNITS Ipratropium [place] 0.5 mg Q6HWA NEB 12/23/24 12:00 12/23/24 18:51 0.5 MG Diagnostic Test (Pha) 1 strip Q6HR 12/23/24 12:00 12/23/24 17:56 1 STRIP Insulin Human Regular Q6HR SC 12/23/24 12:00 12/23/24 17:57 4 UNITS Dextrose 50 ml UD PRN IV 12/23/24 09:00 Metoclopramide HCl 5 mg Q8HR IV 12/23/24 14:00 12/23/24 14:25 5 MG Hydralazine HCl 10 mg Q6HP PRN IV 12/23/24 16:00 Amlodipine Besylate 10 mg DAILY PO 12/24/24 10:00 Levalbuterol HCl 1.25 mg Q6HR NEB 12/24/24 00:00 UNV Examination Review of Systems Review of Systems Gastrointestinal: Nausea, Vomiting Allergies: Coded Allergies: NO KNOWN ALLERGIES (Unverified , 07/27/23) Exam Exam Vital Signs Vital Signs Date Time Temp Pulse Resp B/P (MAP) Pulse Ox O2 Delivery O2 Flow Rate FiO2 12/22/24 18:44 98.4 116 18 173/99 99 98.4 Exam General: Patient is in visible discomfort due to nausea, vomiting. Patient alert and oriented in person, place and time. Patient following commands. HEENT: Normocephalic, atraumatic, moist mucous membranes Respiratory/pulmonary: Clear lungs bilaterally, vesicular murmurs present in almost all lung peter, no associated crackles or wheezes. Cardiovascular: Normal heart sounds S1 and S2 with no associated murmurs Abdomen: Mild abdominal tenderness, mildly reduced bowel sounds Extremities: There is no peripheral edema present at the lower extremities. Skin: No rashes or pruritus, there is no sacral edema present at this time. Neurological: Intact cranial nerves with no focal neurologic deficits Labs/Xrays Labs/Xrays Labs Test 12/22/24 18:56 Range/Units White Blood Count 14.6 H 4.4-10.8 10^3/uL Red Blood Count 4.42 L 4.5-5.90 10^6/uL Hemoglobin 12.0 L 13.5-17.5 g/dL Hematocrit 36.1 L 41.0-53.0 % Mean Corpuscular Volume 81.8 80.0-100.0 fL Mean Corpuscular Hemoglobin 27.2 L 28.0-32.0 pg Mean Corpuscular Hemoglobin Concent 33.3 32.0-36.0 g/dL Red Cell Distribution Width 15.3 H 11.8-14.3 % Platelet Count 336 140-450 10^3/uL Mean Platelet Volume 8.1 6.9-10.8 fL Neutrophils (%) (Auto) 89.5 H 37.0-80.0 % Lymphocytes (%) (Auto) 6.1 L 10.0-50.0 % Monocytes (%) (Auto) 3.0 0.0-12.0 % Eosinophils (%) (Auto) 0.2 0.0-7.0 % Basophils (%) (Auto) 1.2 0.0-2.0 % Neutrophils # (Auto) 13.1 H 1.6-8.6 10 ^3/uL Lymphocytes # (Auto) 0.9 0.4-5.4 10 ^3/uL Monocytes # (Auto) 0.4 0-1.3 10 ^3/uL Eosinophils # (Auto) 0 0-0.8 10 ^3/uL Basophils # (Auto) 0.2 0-0.2 10 ^3/uL Nucleated Red Blood Cells 0.0 % Sodium Level 144 136-145 mmol/L Potassium Level 4.3 3.5-5.1 mmol/L Chloride Level 107 98-107 mmol/L Carbon Dioxide Level 20 20-31 mmol/L Anion Gap 17 H 5-15 Blood Urea Nitrogen 31 H 9-23 mg/dL Creatinine 3.17 H 0.700-1.30 mg/dL Glomerular Filtration Rate Calc 23 >90 mL/min BUN/Creatinine Ratio 9.8 L 10.0-20.0 Serum Glucose 309 H 74-106 mg/dL Calcium Level 9.3 8.7-10.4 mg/dL Total Bilirubin 0.7 0.2-1.0 mg/dL Aspartate Amino Transferase (AST) 21 13-40 U/L Alanine Aminotransferase (ALT) 26 7-40 U/L Alkaline Phosphatase 120 H 46-116 U/L Total Protein 8.2 5.7-8.2 g/dL Albumin 4.5 3.2-4.8 g/dL SEPSIS SEPSIS Sepsis Screen Date sepsis recognized/suspect: Dec 22, 2024 Time Sepsis recognized/suspect: 1839 Recent Procedure: No On Antibiotic Therapy: No Respiratory Rate >20: No Heart Rate >90: Yes Temp<36 C (96.8 F) or >38.3 C: No SBP <90 or MAP <65 mmHG: No New Acute Mental Status Change: No Is the patient on CPAP, BIPAP,: No Physician Orders Urinalysis (12/22/24 18:51) Heplock Iv (12/22/24 18:51) Assembler De[employer] Hull (12/22/24 18:51) Blood Pressure (12/22/24 18:51) Pulse Oximetry (12/22/24 18:51) Ct Ab Pel Wo Con-No Oral Or Iv (12/22/24 19:01) Vital Signs Date Time Temp Pulse Resp B/P (MAP) Pulse Ox O2 Delivery O2 Flow Rate FiO2 12/22/24 18:44 98.4 116 18 173/99 99 98.4 Laboratory Tests Test 12/22/24 18:56 White Blood Count 14.6 10^3/uL (4.4-10.8) H Assessment/Plan Assessment/Plan Assessment/Plan Severe Sepsis due to Acute infectious colitis CT shows Mild wall thickening of the ascending colon,colon over the splenic flexure and rectum. Lactic acidosis, leukocytosis Blood culture ordered Ordered C diff IV ceftriaxone, metronidazole IV NS bolus and maintenance NPO for bowel rest; advance as tolerated Gastritis CT shows gastric wall thickening Continue Protonix 40 mg daily Avoid foods Triggers like spicy, acidic, fried, and fatty foods. Limit Caffeine, highly processed foods and sugars. Discussed incorporating High-Fiber diet and staying hydrated. 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 Full code DISPOSITION: Med/surge laboratory and microbiology Laboratory Tests 12/23/24 03:35 Test 12/23/24 03:35 Range/Units Serum Glucose 291 H 74-106 mg/dL Labs and/or images reviewed: Labs reviewed by me, Image(s) reviewed by me Problem List/Assessment/Plan Problem List/Assessment/Plan Severe Sepsis due to Acute infectious colitis CT shows Mild wall thickening of the ascending colon,colon over the splenic flexure and rectum. Lactic acidosis, leukocytosis Blood culture ordered Ordered C diff IV ceftriaxone, metronidazole IV NS bolus and maintenance Diet advanced as tolerated. Systolic heart failure with EF 25% IV Lasix40 mg b.i.d.. Patient GDM T after patient's condition stabilized. Gastritis CT shows gastric wall thickening Continue Protonix 40 mg daily Avoid foods Triggers like spicy, acidic, fried, and fatty foods. Limit Caffeine, highly processed foods and sugars. Discussed incorporating High-Fiber diet and staying hydrated. 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 DVT PROPHYLAXIS: Lovenox GI PROPHYLAXIS: Protonix CODE STATUS: Goals of care discussed with patient at bedside for more than 35 minutes. Full code DISPOSITION: Med/surge Plan discussed with: Patient, Other My Orders My Orders Orders - SAM NIÑO RESIDENT Procedure Category Date Status Time Glucose Blood PHA 12/23/24 In Process (Accu-Chek Comfort 12:00 Insulin R (Human) PHA 12/23/24 In Process (Insulin R) 12:00 Dextrose 50% Syringe PHA 12/23/24 In Process 09:00 Basic Metabolic Panel LAB 12/24/24 Verified 04:00 Complete Blood Count LAB 12/24/24 Verified 04:00 Date of Service: Dec 23, 2024 Billing Provider: LANEY HAMILTON MD Common Visit Codes: [id number] INP/OBS CARE(HIGH) RENAYSAM RESIDENT Dec 23, 2024 19:28 LANEY HAMILTON MD Dec 28, 2024 20:55
[2024-12-23] MEDS: FUROSEMIDE 40 MG/4 ML VIAL IV ONE (20:08)
[2024-12-23] MEDS: ATORVASTATIN 20 MG TAB PO SCH (23:50)
[2024-12-24] VITALS (9 sets, daily range): BP systolic 127–183; BP diastolic 80–110; PULSE 110–124; RESP 17–20; TEMP 36.9; O2SAT 96–100
[2024-12-24] MEDS ORDERED: LEVALBUTEROL HCL 1.25 MG/3 ML NEB NEB SCH
[2024-12-24] MEDS ORDERED: LEVALBUTEROL HCL 1.25 MG/3 ML NEB NEB PRN
[2024-12-24] MEDS ORDERED: IPRATROPIUM BROM 0.5 MG/2.5ML INH SOL NEB PRN
[2024-12-24 05:03] LABS: Hematocrit 38.5 % (41.0-53.0); Hemoglobin 12.7 g/dL (13.5-17.5); Mean Corpuscular Hemoglobin 27.3 pg (28.0-32.0); Mean Corpuscular Volume 83.0 fL (80.0-100.0); Nucleated Red Blood Cells % 0.0 %
[2024-12-24 05:13] LABS: Potassium 3.8 mmol/L (3.5-5.1); Sodium 144 mmol/L (136-145)
[2024-12-24 05:14] LABS: Anion Gap 12 (5-15); Carbon Dioxide 21 mmol/L (20-31)
[2024-12-24 05:19] LABS: BUN/Creatinine Ratio 8.9 (10.0-20.0)
[2024-12-24 05:23] LABS: Blood Urea Nitrogen 26 mg/dL (9-23); Calcium 8.5 mg/dL (8.7-10.4); Chloride 111 mmol/L (98-107); Glucose 240 mg/dL (74-106)
[2024-12-24] MEDS ORDERED: DEXTROSE (50%) 50ML SYRG IV PRN (06:45)
[2024-12-24] MEDS ORDERED: METOCLOPRAMIDE HCL 5MG/ml INJ 2ml VIAL IV PRN (06:45)
--- NOTE | 2024-12-24 07:15 | ECG ---
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
[2024-12-24] MEDS ORDERED: POLYETHYLENE GLYCOL 17 GM PWDR PO PRN (09:00)
--- NOTE | 2024-12-24 09:40 | DVH ---
INDICATION: evaluate for ckd TECHNIQUE: Multiple real-time sonographic images of the kidneys and bladder were obtained. COMPARISON: None FINDINGS: The right kidney measures 12 cm in length, which is normal in size. There is normal echogen icity of the right kidney. No hydronephrosis. The left kidney measures 13 cm in length, which is normal in size. There is normal echogenicity of th e left kidney. No hydronephrosis. No large intraluminal masses are seen in the bladder. Prior to voiding the bladder volume measures vo lume 197 cc. IMPRESSION: 1. Normal sonographic appearance of the kidneys. No hydronephrosis.
--- NOTE | 2024-12-24 10:15 | DVH ---
EXAM: XY CHEST XRAY 1 VIEW Indication: SOB Technique: Single frontal view of the chest was obtained Comparison: XY CHEST XRAY 1 VIEW on DOS: 12/23/24 FINDINGS: Lines and Tubes: None Lungs: No focal consolidation. Pleura: No effusion. No pneumothorax. Cardiomediastinal contours: Unremarkable Bones: No acute osseous abnormality. IMPRESSION: No acute cardiopulmonary disease.
[2024-12-24] MEDS: CEFEPIME 1GM/50ML 50 ML IV SCH (10:39)
[2024-12-24 10:42] LABS: Hepatitis B Surface Antigen Negative (Negative); Hepatitis C Antibody Negative (Negative)
[2024-12-24] MEDS: ACCU-CHEK COMFORT CURVE STRIP VI SCH (12:12)
[2024-12-24] MEDS: SODIUM CHLORIDE 0.9% 1,000 ML IV ONE (12:12)
[2024-12-24] MEDS: InsuLIN REG 1unit/0.01ml Soln (100units/ml) SC SCH (12:28)
[2024-12-24] MEDS ORDERED: AUG875T PO (14:48)
[2024-12-24] MEDS ORDERED: CLON0.2T PO (14:48)
--- NOTE | 2024-12-24 17:16 | DVHDSRES ---
Discharge Summary Date of Admission Resident Creating Document: SAM NIÑO Dec 22, 2024 at 21:59 Date of Discharge: Dec 24, 2024 Labs/Diagnostic Data: Laboratory Results Test 12/24/24 12:08 12/24/24 11:34 12/24/24 04:25 12/23/24 15:55 POC Glucose 248 mg/dl (70-106) Erythrocyte Sedimentation Rate 23 mm/hr (0-20) White Blood Count 16.6 10^3/uL (4.4-10.8) Red Blood Count 4.64 10^6/uL (4.5-5.90) Hemoglobin 12.7 g/dL (13.5-17.5) Hematocrit 38.5 % (41.0-53.0) Mean Corpuscular Volume 83.0 fL (80.0-100.0) Mean Corpuscular Hemoglobin 27.3 pg (28.0-32.0) Mean Corpuscular Hemoglobin Concent 32.9 g/dL (32.0-36.0) Red Cell Distribution Width 15.7 % (11.8-14.3) Platelet Count 321 10^3/uL (140-450) Mean Platelet Volume 8.4 fL (6.9-10.8) Neutrophils (%) (Auto) 85.0 % (37.0-80.0) Lymphocytes (%) (Auto) 6.5 % (10.0-50.0) Monocytes (%) (Auto) 7.5 % (0.0-12.0) Eosinophils (%) (Auto) 0.3 % (0.0-7.0) Basophils (%) (Auto) 0.7 % (0.0-2.0) Neutrophils # (Auto) 14.1 10 ^3/uL (1.6-8.6) Lymphocytes # (Auto) 1.1 10 ^3/uL (0.4-5.4) Monocytes # (Auto) 1.2 10 ^3/uL (0-1.3) Eosinophils # (Auto) 0 10 ^3/uL (0-0.8) Basophils # (Auto) 0.1 10 ^3/uL (0-0.2) Nucleated Red Blood Cells 0.0 % Sodium Level 144 mmol/L (136-145) Potassium Level 3.8 mmol/L (3.5-5.1) Chloride Level 111 mmol/L (98-107) Carbon Dioxide Level 21 mmol/L (20-31) Anion Gap 12 (5-15) Blood Urea Nitrogen 26 mg/dL (9-23) Creatinine 2.93 mg/dL (0.700-1.30) Glomerular Filtration Rate Calc 26 mL/min (>90) BUN/Creatinine Ratio 8.9 (10.0-20.0) Serum Glucose 240 mg/dL (74-106) Lactic Acid Level 0.9 mmol/L (0.4-2.0) Calcium Level 8.5 mg/dL (8.7-10.4) C-Reactive Protein High Sensitivity 0.41 mg/dL (<1.0) B-Type Natriuretic Peptide 207.15 pg/mL (0-100) Troponin I High Sensitivity 143 ng/L (</=54) Test 12/23/24 04:45 12/23/24 03:35 12/23/24 03:10 12/22/24 21:39 Urine Color Light-yellow (Yellow) Urine Clarity Clear (Clear) Urine pH 6.5 (5.0-9.0) Urine Specific [place] 1.013 (1.001-1.035) Urine Protein 3+ (Negative) Urine Ketones Negative (Negative) Urine Blood 2+ /uL (Negative) Urine Nitrite Negative (Negative) Urine Bilirubin Negative (Negative) Urine Urobilinogen Normal mg/dL (Negative) Urine Leukocyte Esterase Negative /uL (Negative) Urine RBC 16 /hpf (0 - 3) Urine Microscopic WBC 2 /HPF (0-3) Urine Squamous Epithelial Cells None seen /hpf (<5) Urine Bacteria None seen /hpf (None Seen) Urine Glucose 3+ mg/dL (Normal) Urine Opiates Screen Neg (NEGATIVE) Urine Fentanyl Screen Neg (NEGATIVE) Urine Barbiturates Screen Neg (NEGATIVE) Urine Phencyclidine Screen Neg (NEGATIVE) Urine Amphetamines Screen Neg (NEGATIVE) Urine Benzodiazepines Screen Neg (NEGATIVE) Urine Cocaine Screen Neg (NEGATIVE) Urine Cannabinoids Screen Neg (NEGATIVE) Total Bilirubin 0.6 mg/dL (0.2-1.0) Aspartate Amino Transferase (AST) 23 U/L (13-40) Alanine Aminotransferase (ALT) 23 U/L (7-40) Alkaline Phosphatase 112 U/L (46-116) Total Protein 8.5 g/dL (5.7-8.2) Albumin 4.5 g/dL (3.2-4.8) Influenza Type A Antigen Negative (Negative) Influenza Type B Antigen Negative (Negative) SARS-CoV-2 Antigen (Rapid) Negative (NEGATIVE) Haptoglobin 302 mg/dL (23-355) Iron Level 26 ug/dL (65-175) Total Iron Binding Capacity 233 ug/dL (250-425) Percent Iron Saturation 11.2 % (20-55) Vitamin D 25-Hydroxy 42.6 ng/mL (30.0-100) Free Thyroxine (T4) Calculated 1.32 ng/dL (0.89-1.76) Total Triiodothyronine (TT3) 0.73 ng/mL (0.60-1.81) Hepatitis A IgM Antibody Negative Hepatitis B Surface Antigen Negative (Negative) Hepatitis B Core IgM Antibody Negative (Negative) Hepatitis C Antibody Negative (Negative) Test 12/22/24 18:56 Reticulocyte Count (auto) 0.79 % (0.5-1.5) Prothrombin Time 11.2 sec (9.3-11.8) Prothrombin Time INR 1.06 (0.9-1.15) Activated Partial Thromboplast Time 26.5 SEC (24.5-34.5) Hemoglobin A1c 8.1 % A1C (<5.7) Phosphorus Level 3.7 mg/dL (2.4-5.1) Magnesium Level 2.1 mg/dL (1.6-2.6) Ferritin 213.6 ng/mL (22-322) Triglycerides Level 71 mg/dL (< 150) Cholesterol Level 133 mg/dL (< 200) LDL Cholesterol 77 mg/dL (< 100) HDL Cholesterol 43 mg/dL (40-59) Lipase 44 U/L (12-53) Vitamin B12 Level 1655 pg/mL (211-911) Thyroid Stimulating Hormone (TSH) 0.38 uIU/mL (0.55-4.78) Other Laboratory Tests 12/24/24 04:25 Brief Hx & Hospital Course: This is a 49-year-old male with past medical history of systolic heart failure with EF 25%, hypertension, diabetes mellitus, hyperlipidemia, CKD, presented to the ER with chief complain of vomiting. Patient report 2 episodes of vomiting since morning, vomitus contained food content, no blood seen. He also complains of associated constipation for the last 5 days, but has been able to pass gas. He had similar 3-4 episodes in the past, which were associated with loss of consciousness. Patient did not report loss of consciousness during this episode. 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 Denies abdominal pain, fever, chills. Patient reports doing all the cardiac workup including stress test at [facility] in October, which reveals no significant abnormalities. His ejection fraction was 50% during that echo. The patient denied any history of COPD. Previous hospitalization: 2 years ago for gastroparesis PMHx: COPD, hypertension, diabetes mellitus, hyperlipidemia, CKD stage IV, not on dialysis.systolic heart failure with EF 25%, PSHx: Retinal detachment surgery, surgical debridement for scrotal gangrene 5 years ago Family history: Father has history of prostatic carcinoma Social history: Denies smoking, alcohol, drug abuse. Lives in home with family. Full code. Next of kin . Home medication: Amlodipine 5 mg, atorvastatin 20 mg, chlorthalidone 25, metoclopramide 5 mg, Zofran, pantoprazole 40, pioglitazone, Trulicity, insulin, lisinopril 20 Allergic history: No known allergies CT scan on admission revealed colitis. The patient was treated with IV fluid, IV ceftriaxone and metronidazole. He was kept NPO initially then diet was advanced as tolerated. The patient initially had lactic acidosis, later it trended down to normal. He was treated with Protonix 40 mg daily because of gastritis. The patient was advised on high fiber diet. His constipation was treated with enema and MiraLax. His hypertension was managed with amlodipine and chlorthalidone. Lisinopril was held due to RIN on CKD. His RIN on CKD was managed with IV fluid, creatinine was down to and during from 3 to do so. Normocytic normal chromic anemia was noted. Her diabetes mellitus was managed with insulin sliding scale. Hemoglobin A1c was 8.1. Another echocardiogram was planned based on his previous echo finding of 25%, however patient declined due to all his cardiac workup was negative from [facility] in October. On the day of discharge, patient was hemodynamically stable, verbalized understanding of treatment and discharge planning. The patient was advised to follow up with PCP and DC clinic. Exam General: Patient is in visible discomfort due to nausea, vomiting. Patient alert and oriented in person, place and time. Patient following commands. HEENT: Normocephalic, atraumatic, moist mucous membranes Respiratory/pulmonary: Clear lungs bilaterally, vesicular murmurs present in almost all lung peter, no associated crackles or wheezes. Cardiovascular: Normal heart sounds S1 and S2 with no associated murmurs Abdomen: Mild abdominal tenderness, mildly reduced bowel sounds Extremities: There is no peripheral edema present at the lower extremities. Skin: No rashes or pruritus, there is no sacral edema present at this time. Neurological: Intact cranial nerves with no focal neurologic deficits Operations or Procedures [address] [place] [id number] Ph: [phone] DIAGNOSTIC IMAGING Diagnostic Imaging Report : [id number] Signed PATIENT: HEAVENLY MAZARIEGOS ACCT: [id number] UNIT: [id number] : 1975 LOC: ER ROOM / BED: / AGE / SEX: 49 / M ADM STATUS: REG ER SERVICE 190 ORDERING PHYSICIAN: YONATHAN LLOYD MD PROCEDURE(s): ABPL - CT AB PEL WO CON-NO ORAL OR IV REASON: pain ORDER NUMBER(s): [id number], ACCESSION NUMBER(s): [id number] Exam: CT CT AB PEL WO CON-NO ORAL OR IV History: pain Comparison Study: CT CT AB PEL WO CON-NO ORAL OR IV on DOS: 04/13/24, CT CT AB PEL WO CON-NO ORAL OR IV on DOS: 07/27/23 TECHNIQUE: Multidetector CT of the abdomen pelvis without IV contrast. Axial, coronal and sagittal multiplanar reformats were obtained from the axial data set by the technologist. Radiation Dose Information: CT Dose: CTDI volume is 22.91 mGy. Dose-length product is 1295.49 mGy*cm FINDINGS: Bibasilar atelectasis. Partially visualized heart is unremarkable. Liver, spleen, gallbladder, pancreas and adrenal glands are unremarkable. Small splenules are noted adjacent to the spleen. Mild nonspecific bilateral perirenal fat stranding. Otherwise, kidneys, ureters and urinary bladder unremarkable. Prostate is unremarkable. Mild gaseous distention of the distal esophagus. Mild gastric wall thickening. Small bowel loops are unremarkable. Appendix is unremarkable. Mild wall thickening of the ascending colon with mild wall thickening of the colon over the splenic flexure. Mild rectal wall thickening. No evidence of intraperitoneal free air or free fluid. No evidence of aortic aneurysm. No significant lymphadenopathy. Minimal body wall edema. Endplate degenerative changes at L3-L4 with vacuum disc phenomenon schmorl nodes. Sclerotic focus of the left acetabulum which may represent a small bone island with a blastic lesion not excluded. IMPRESSION: Mild wall thickening of the ascending colon,colon over the splenic flexure and rectum. Correlate for colitis. Mild gastric wall thickening which May due to inadequate distention with mild gastritis not excluded. Endplate degenerative changes at L3-L4 with vacuum disc phenomenon schmorl nodes. Underlying infectious process can not be completely excluded but thought less likely. ATED BY: AVELINA DOLAN DO DICTATED DATE/TIME: 12/22/242001 SIGNED BY: AVELINA DOLAN DO SIGNED DATE/TIME: 12/22/242001 CC: [address] [place] [address] Ph: [phone] DIAGNOSTIC IMAGING Diagnostic Imaging Report : [id number] Signed PATIENT: HEAVENLY MAZARIEGOS ACCT: [id number] UNIT: [id number] : 1975 LOC: OVERFLOW ROOM / BED: [address] [place] [address] AGE / SEX: 49 / M ADM STATUS: ADM IN SERVICE 18 ORDERING PHYSICIAN: ELOISE SCOTT RESIDENT PROCEDURE(s): CXR1 - CHEST XRAY 1 VIEW REASON: SOB ORDER NUMBER(s): [id number], ACCESSION NUMBER(s): [id number] CHEST RADIOGRAPH Indication: SOB Technique: Single frontal view of the chest was obtained Comparison: None FINDINGS: The cardiac silhouette is enlarged. The lungs demonstrate perihilar airspace opacities. The pulmonary vasculature is prominent. There is no pleural effusion. There is no pneumothorax. IMPRESSION: Cardiomegaly with pulmonary vascular congestion and bilateral perihilar airspace opacities. ATED BY: ABBY BROWN MD DICTATED DATE/TIME: 12/23/24 [address] [id number] Ph: [phone] DIAGNOSTIC IMAGING Diagnostic Imaging Report : [id number] Signed PATIENT: HEAVENLY MAZARIEGOS ACCT: [id number] UNIT: [id number] : 1975 LOC: [facility] AGE / SEX: 49 / M ADM STATUS: ADM IN SERVICE 0400 ORDERING PHYSICIAN: ELOISE SCOTT PROCEDURE(s): CXR1 - CHEST XRAY 1 VIEW REASON: SOB ORDER NUMBER(s): [id number], ACCESSION NUMBER(s): [id number] EXAM: XY CHEST XRAY 1 VIEW Indication: SOB Technique: Single frontal view of the chest was obtained Comparison: XY CHEST XRAY 1 VIEW on DOS: 12/23/24 FINDINGS: Lines and Tubes: None Lungs: No focal consolidation. Pleura: No effusion. No pneumothorax. Cardiomediastinal contours: Unremarkable Bones: No acute osseous abnormality. IMPRESSION: No acute cardiopulmonary disease. ATED BY: NIKI MAYS MD DICTATED DATE/TIME: 12/24/24 1013 SIGNED BY: NIKI MAYS MD SIGNED DATE/TIME: 12/24/24 [address] [id number] Ph: [phone] DIAGNOSTIC IMAGING Diagnostic Imaging Report : [id number] Signed PATIENT: HEAVENLY MAZARIEGOS ACCT: [id number] UNIT: [id number] : 1975 LOC: [facility] ROOM / BED: [address] [place] [address] AGE / SEX: 49 / M ADM STATUS: ADM IN SERVICE 0849 ORDERING PHYSICIAN: ELOISE SCOTT PROCEDURE(s): KIDUS - KIDNEY REASON: evaluate for ckd ORDER NUMBER(s): [id number], ACCESSION NUMBER(s): [id number] INDICATION: evaluate for ckd TECHNIQUE: Multiple real-time sonographic images of the kidneys and bladder were obtained. COMPARISON: None FINDINGS: The right kidney measures 12 cm in length, which is normal in size. There is normal echogenicity of the right kidney. No hydronephrosis. The left kidney measures 13 cm in length, which is normal in size. There is normal echogenicity of the left kidney. No hydronephrosis. No large intraluminal masses are seen in the bladder. Prior to voiding the bladder volume measures volume 197 cc. IMPRESSION: 1. Normal sonographic appearance of the kidneys. No hydronephrosis. 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 Discharge Disposition: Home Discharge Instruct/Medications Diet: Consistent carbohydrate, Cardiac 2g Na,low cholest Activity: No Restrictions, As Tolerated Follow Up/Referral: fu with PCP in a week Scheduled Amlodipine Besylate (Norvasc Tablet), 10 MG PO DAILY Amoxicillin & Pot Clavulanate (Augmentin Tablet), 875 MG PO BID Atorvastatin Calcium (Atorvastatin Calcium), 20 MG PO DAILY Chlorthalidone (Chlorthalidone), 25 MG PO DAILY Metformin Hydrochloride (Metformin Hcl), 1 TAB PO BID Metoclopramide HCl (Metoclopramide Hydrochlor), 5 MG PO Q8HR Pantoprazole Sodium Sesquihydr (Protonix), 40 MG PO DAILY Pioglitazone Hydrochloride (Actos Tablet), 1 TAB PO DAILY Temazepam (Restoril), 1 CAP PO QPM Scheduled PRN Clonidine Hydrochloride (Clonidine Hcl), 1 TAB PO BIDPRN PRN Ondansetron Odt 4MG Tab (Zofran Po), 4 MG PO Q8HP PRN Discharge Statement: "Patient was advised to return to the ER or call 911 if any headaches, dizziness, shortness of breath, chest pain, abdominal pain, bleeding, fevers, or worsening of medical condition. Patient was counseled about treatment plan, medications, possible side effects, patientverbalized understanding. All questions were answered to the best of my ability. This discharge took greater then 30 minutes in planning, reviewing documentation, counseling the patient, and discussing with other team members." ASSESSMENT ASSESSMENT Assessment sepsis due to colitis Date of Service: Dec 24, 2024 Billing Provider: LANEY HAMILTON MD Common Visit Codes: 69627-QNE/OBS DISCH DAY >30min RENAY,SAM RESIDENT Dec 24, 2024 17:16 LANEY HAMILTON MD Dec 28, 2024 20:55
[2024-12-24] MEDS ORDERED: INSULIN LANTUS (GLARGINE) 1 /0.01ml (100units/ml) SC SCH (22:00)
--- NOTE | 2024-12-25 01:12 | DVHSR ---
APPROVED REPORT EXAM: Two-dimensional and M-mode echocardiogram with Doppler and color Doppler. Blood Pressure: 127/80 mmHg INDICATION Pulmonary edema RISK FACTORS Height: 70, Weight: 231 DIMENSIONS LVDd4.9 (3.8-5.7cm)LA (2D)4.0 (1.9-4.0cm)Aortic Root3.8 (2.0-3.7cm) LVDs4.0 (2.5-4.0cm)LA (MM) (1.9-4.0cm)Aortic Cusp Exc1.9 (1.5-2.0cm) EF (%) 40.0 (55-70%)Rt. Atrium3.5 (1.9-4.0cm)Asc. Aorta cm IVSd1.2 (0.7-1.1cm)RV (D) (1.8-2.4cm) PWd1.4 (0.7-1.1cm) Mitral Valve MitralMitral Stenosis E wave1.09m/sMV Mean GR.mmHg E/A ratio0.02D MVAcm2 Aortic Valve Aortic ValveAortic Stenosis V10.64m/Aayush Mean GR.2mmHg V21.02m/Aayush Peak GR.4mmHg LVOT Diameter2.6 (1.8-2.4cm)Doppler AVA3.33cm2 Pulmonic Valve V20.99m/s Tricuspid Valve TR Velocity2.38m/s [id number] Other Information Technically limited study due to body habitus. Conclusion MILD LVH AND MILD LV DIASTOLIC DYSFUNCTION DYSKINESIS OF IVS SLIGHTLY DILATED RV NORMAL VALVES NO EFFUSION
--- NOTE | 2024-12-25 10:41 | ECG ---
[facility] Test Date: 2024-12-23 Test Time: 11:06:00 Pat Name: HEAVENLY MAZARIEGOS Department: Respiratoy Room: 0250T B Gender: M [employer]er: : 1975 Requested By: SAM NIÑO Order Number: [id number] Reading MD: Measurements Intervals [place] Rate: 115 P: 95 TN: 146 QRS: 2 QRSD: 101 T: 90 QT: 347 QTc: 480 Interpretive Statements Sinus tachycardia Borderline T wave abnormalities Borderline prolonged QT interval Please click the below link to view image of tracing.
== END 2024-12-24 19:50 | disposition home or self-care (01) | DRG 871 ==
LOC: ER 18:29 → OVERFLOW 21:59 → TELE-EAST 12-23 21:25
PROVIDERS: ADMIT Internal Medicine Geriatric Medicine; ATTEND Internal Medicine Geriatric Medicine
DX: A41.9 Sepsis, unspecified organism (principal); N17.0 Acute kidney failure with tubular necrosis; A09 Infectious gastroenteritis and colitis, unspecified; N18.4 Chronic kidney disease, stage 4 (severe); I13.0 Hypertensive heart and chronic kidney disease with heart failure and stage 1 through stage 4 chronic kidney disease, or unspecified chronic kidney disease; I50.20 Unspecified systolic (congestive) heart failure; R65.20 Severe sepsis without septic shock; K29.70 Gastritis, unspecified, without bleeding; J44.9 Chronic obstructive pulmonary disease, unspecified; D64.9 Anemia, unspecified; E86.0 Dehydration; E78.5 Hyperlipidemia, unspecified; E11.43 Type 2 diabetes mellitus with diabetic autonomic (poly)neuropathy; K31.84 Gastroparesis; E11.22 Type 2 diabetes mellitus with diabetic chronic kidney disease; E11.65 Type 2 diabetes mellitus with hyperglycemia; Z80.42 Family history of malignant neoplasm of prostate
CPT/HCPCS: 36415; 71045; 74176; 76775; 80048; 80053; 80061; 80074; 80307; 81001; 82306; 82607; 82728; 82962; 83010; 83036; 83540; 83550; 83605; 83690; 83735; 83880; 84100; 84439; 84443; 84480; 84484; 85025; 85045; 85610; 85652; 85730; 86141; 87040; 87086; 87426; 87804; 93005; 93306; 94640; 96365; 96375; G0378; J1815; J2405; J2470; J3490

== ENCOUNTER 2025-01-30 09:38 | Inpatient (IN) | payer OTHER ==
[~2025-01-30] VITALS: Ht 177.8 cm; Wt 107.4 kg
[~2025-01-30 09:38] MED LIST changes: +AUG875T PO; +CLON0.2T PO
--- NOTE | 2025-01-30 10:08 | ED.PDOC ---
GI ASSESSMENT HPI Comments 49 y/o F, with PMHx of sepsis, DM, HTN, and ESRD III without dialysis presents to the ED for CC of nausea/vomiting. Patient reports, to have symptoms of nausea/vomiting with associated chills which began last night (01/29/25). Patient reports, new onset symptoms of diarrhea which began today (01/30/25). Per patient, he was recently admitted to [facility] h1adsam ago on (12/22/24) d/t sepsis. Patient denies fever, constipation, hematemesis, or abdominal pain. No other symptoms or modifying factors are present at this time. Chief Complaint: Abdominal Pain Time Seen by MD: 10:00 Primary Care Provider: calvin Reviewed Notes: Nurses Notes, Medications, Allergies Allergies: Coded Allergies: NO KNOWN ALLERGIES (Unverified , 07/27/23) Home Meds Active Scripts Clonidine Hydrochloride (Clonidine Hcl) 0.2 Mg Tab, 1 TAB PO BIDPRN PRN for 30 Days, #60 TAB 0 Refills Prov:ELOISE SCOTT 12/24/24 Amoxicillin & Pot Clavulanate (AUGMENTIN TABLET) 875 Mg Tb, 875 MG PO BID for 7 Days, #14 TAB 0 Refills Prov:ELOISE SCOTT 12/24/24 Pantoprazole Sodium Sesquihydr (Protonix) 40 Mg Tab, 40 MG PO DAILY, #30 TAB Prov:YONATHAN LLOYD MD 04/13/24 Ondansetron Odt 4MG Tab (ZOFRAN PO) 4 Mg Tb, 4 MG PO Q8HP PRN for 7 Days, #21 TAB ODT TAB-DISSOLVE IN MOUTH, THEN SWALLOW Prov:YONATHAN LLOYD MD 04/13/24 Temazepam (Restoril) 15 Mg Cp, 1 CAP PO QPM for 7 Days, #7 CAP 1 Refill Prov:OSCAR SALINAS NP 07/29/23 Chlorthalidone (Chlorthalidone) 25 Mg Tab, 25 MG PO DAILY for 60 Days, #60 TAB Prov:SOCAR SALINAS [employer]GRAM MANAGEMENT PROFESSIONAL 07/29/23 Atorvastatin Calcium (ATORVASTATIN CALCIUM) 20 Mg Tab, 20 MG PO DAILY for 60 Days, #60 TAB Prov:OSCAR SALINAS PROGRAM MANAGEMENT PROFESSIONAL 07/29/23 Pioglitazone Hydrochloride (ACTOS TABLET) 30 Mg Tb, 1 TAB PO DAILY, #90 TAB 1 Refill Prov:OSCAR SALINAS NP 07/29/23 Metformin Hydrochloride (Metformin Hcl) 500 Mg Tab, 1 TAB PO BID, #60 TAB 3 Refills Prov:OSCAR SALINAS PROGRAM MANAGEMENT PROFESSIONAL 07/29/23 Metoclopramide HCl (Metoclopramide Hydrochlor) 10 Mg Tab, 5 MG PO Q8HR for 60 Days, #90 TAB Prov:OSCAR SALINAS NP 07/29/23 Amlodipine Besylate (NORVASC TABLET) 5 Mg Tb, 10 MG PO DAILY for 60 Days, #120 TAB Prov:OSCAR SALINAS NP 07/29/23 Information Source: Patient, Relative Mode of Arrival: Ambulatory Timing: Hours Duration: Since onset Prehospital treatment: None Quality: None Vomitus: Watery Stool: Watery Severity: Moderate Recent: None Recent Hx of: None Pain Location: None Modifying Factors: Nothing Associated sign and symptoms: Nausea, Vomiting, Diarrhea Past Medical History PAST MEDICAL HISTORY: CKF, DM, High Lipids, HTN Past Medical History (Other): sepsis Surgical History: Denies all surgeries Family History Family History: Family hx of DM, Family hx of heart gianfranco Social History Smoker: Non-Smoker Alcohol: Rarely Drugs: Denies Drug Use Lives In: Home Constitutional: denies: chills, diaphoresis, fatigue, fever, malaise, sweats, weakness, others EENTM: denies: blurred vision, double vision, ear bleeding, ear discharge, ear drainage, ear pain, ear ringing, eye pain, eye redness, hearing loss, mouth pain, mouth swelling, nasal discharge, nose bleeding, nose congestion, nose pain, photophobia, tearing, throat pain, throat swelling, voice changes, others Respiratory: denies: cough, hemoptysis, orthopnea, SOB at rest, shortness of breath, SOB with excertion, stridor, wheezing, others Cardiovascular: denies: chest pain, dizzy spells, diaphoresis, Dyspnea on exertion, edema, irregular heart beat, left arm pain, lightheadedness, palpitations, PND, syncope, others Gastrointestinal: reports: nausea, vomiting; denies: abdomen distended, abdominal pain, blood streaked bowels, constipated, diarrhea, dysphagia, difficulty swallowing, hematemesis, melena, poor appetite, poor fluid intake, rectal bleeding, rectal pain, others Genitourinary: denies: burning, dysuria, flank pain, frequency, hematuria, incontinence, penile discharge, penile sore, pain, testicle pain, testicle swelling, urgency, others Neurological: denies: dizziness, fainting, headache, left sided numbness, left sided weakness, numbness, paresthesia, pre-existing deficit, right sided numbness, right sided weakness, seizure, speech problems, tingling, tremors, weakness, others Musculoskeletal: denies: back pain, gout, joint pain, joint swelling, muscle pain, muscle stiffness, neck pain, others Integumetry: denies: bruises, change in color, change in hair/nails, dryness, laceration, lesions, lumps, rash, wounds, others Allergic/Immunocompromised: denies: Difficulty Healing, Frequent Infections, Hives, Itching, others Hematologic/Lymphatic: denies: anemia, blood clots, easy bleeding, easy bruising, swollen glands, others Endocrine: denies: excessive hunger, excessive sweating, excessive thirst, excessive urination, flushing, intolerance to cold, intolerance to heat, unexplained weight gain, unexplained weight loss, others Psychiatric: denies: anxiety, bipolar disorder, depression, hopeless, panic disorder, schizophrenia, sleepless, suicidal, others All Other Systems: Reviewed and Negative Physical Exam General Appearance: Moderate Distress, Obese HEENT: Normal ENT Inspection, Pharynx Normal, TMs Normal Neck: Full Range of Motion, Non-Tender, Normal, Normal Inspection Respiratory: Chest Non-Tender, Lungs Clear, No Accessory Muscle Use, No Respiratory Distress, Normal Breath Sounds Cardiovascular: No Edema, No JVD, No Murmur, No Gallop, Normal Peripheral Pulses, Regular Rate/Rhythm Breast Exam: Deferred Gastrointestinal: Diffuse, No Organomegaly, No Pulsatile Mass, Normal Bowel Sounds, Soft, Tenderness Genitalia: Deferred Pelvic: Deferred Rectal: Deferred Extremities: No calf tenderness, Normal capillary refill, Normal inspection, N ormal range of motion, Non-tender, No pedal edema Musculoskeletal : Apperance: Normal Neurologic: Alert, e learning designer II-XII nml as Tested, Motor Weakness, Normal Affect, Normal Mood, No Sensory Deficits Cerebellar Function: Normal Reflexes: Normal Skin: Dry, Pallor, Warm Lymphatic: No Adenopathy Was a procedure done? Was a procedure done?: No GI differential Dx Differential Diagnosis: Diverticular disease, Gastritis/PUD, Gastroenteritis, Inflammatory BD, Electrolyte Imbalance, Food Poisoning, Bacterial, Viral X-Ray, Labs, Meds, VS Vital Signs Date Time Temp Pulse Resp B/P (MAP) Pulse Ox O2 Delivery O2 Flow Rate FiO2 01/30/25 17:07 104 17 93 Room Air* 0 21 01/30/25 15:05 170/82 01/30/25 14:40 123 21 170/82 (111) 92 01/30/25 13:15 100.7 01/30/25 13:15 198/83 01/30/25 12:00 100.1 122 27 198/96 (130) 90 100.1 01/30/25 11:40 Room Air* 0 21 01/30/25 10:15 208/115 01/30/25 10:00 99.3 117 18 208/115 (146) 94 99.3 01/30/25 09:39 99.1 118 20 219/115 100 99.1 Lab Test 01/30/25 12:39 01/30/25 10:28 Range/Units Lactic Acid Level 2.8 *H 3.3 *H 0.4-2.0 mmol/L White Blood Count 13.6 H 4.4-10.8 10^3/uL Red Blood Count 4.42 L 4.5-5.90 10^6/uL Hemoglobin 12.0 L 13.5-17.5 g/dL Hematocrit 37.0 L 41.0-53.0 % Mean Corpuscular Volume 83.6 80.0-100.0 fL Mean Corpuscular Hemoglobin 27.2 L 28.0-32.0 pg Mean Corpuscular Hemoglobin Concent 32.6 32.0-36.0 g/dL Red Cell Distribution Width 15.3 H 11.8-14.3 % Platelet Count 338 140-450 10^3/uL Mean Platelet Volume 8.5 6.9-10.8 fL Neutrophils (%) (Auto) 88.5 H 37.0-80.0 % Lymphocytes (%) (Auto) 6.7 L 10.0-50.0 % Monocytes (%) (Auto) 4.0 0.0-12.0 % Eosinophils (%) (Auto) 0.0 0.0-7.0 % Basophils (%) (Auto) 0.8 0.0-2.0 % Neutrophils # (Auto) 12.0 H 1.6-8.6 10 ^3/uL Lymphocytes # (Auto) 0.9 0.4-5.4 10 ^3/uL Monocytes # (Auto) 0.5 0-1.3 10 ^3/uL Eosinophils # (Auto) 0 0-0.8 10 ^3/uL Basophils # (Auto) 0.1 0-0.2 10 ^3/uL Nucleated Red Blood Cells 0.0 % Sodium Level 142 136-145 mmol/L Potassium Level 3.9 3.5-5.1 mmol/L Chloride Level 104 98-107 mmol/L Carbon Dioxide Level 22 20-31 mmol/L Anion Gap 16 H 5-15 Blood Urea Nitrogen 27 H 9-23 mg/dL Creatinine 2.78 H 0.700-1.30 mg/dL Glomerular Filtration Rate Calc 27 >90 mL/min BUN/Creatinine Ratio 9.7 L 10.0-20.0 Serum Glucose 364 H 74-106 mg/dL Calcium Level 9.4 8.7-10.4 mg/dL Lipase 47 12-53 U/L Current Medications Medications (Trade) Dose Ordered Sig/Amisha Route Start Time Stop Time Status Last Admin Sodium Chloride 1,000 ml @ 1,000 mls/hr Q1H ONCE IVB 01/30/25 10:00 01/30/25 10:59 DC 01/30/25 10:15 Prochlorperazine Edisylate (Compazine Inj) 10 mg ONCE ONCE IV 01/30/25 10:00 01/30/25 10:02 DC 01/30/25 10:14 Hydralazine HCl (Apresoline Injection) 20 mg ONCE ONCE IV 01/30/25 10:15 01/30/25 10:16 DC 01/30/25 10:15 Clonidine HCl (Catapres Tablet) 0.2 mg ONCE ONCE PO 01/30/25 13:15 01/30/25 13:16 DC 01/30/25 13:15 Acetaminophen (Tylenol Tablet) 650 mg ONCE ONCE PO 01/30/25 13:15 01/30/25 13:16 DC 01/30/25 13:15 Ceftriaxone Sodium 50 ml @ 100 mls/hr ONCE ONCE IV 01/30/25 13:15 01/30/25 13:44 DC 01/30/25 13:14 Vancomycin HCl 250 ml @ 250 mls/hr ONCE ONCE IV 01/30/25 14:15 01/30/25 15:14 DC 01/30/25 14:31 Sodium Chloride 1,000 ml @ 1,000 mls/hr Q1H ONCE IV 01/30/25 13:30 01/30/25 14:29 DC 01/30/25 13:24 CT Abd Pel shows: IMPRESSION: No acute intraabdominal abnormality. The patient's CBC shows an elevated white blood cell count of 13.6 The hemoglobin and hematocrit are within normal limits The patient's lactic acid level went from 3.3 to 2.8 We will continue giving the patient normal saline per sepsis protocol After blood cultures x2 were drawn, the patient was started on vancomycin and Rocephin The patient was also significantly hypertensive and so was started on h ydralazine 20 mg IV push The patient is still remaining hypertensive in his still vomiting The patient has been given Compazine 10 mg IV push for the vomiting We did get authorization for admission in the patient is being admitted at this time Images Reviewed?: Images reviewed and evaluated by me Time of 1ST Reevaluation: 10:30 Reevaluation 1ST: Unchanged Patient Education/Counseling: Diagnosis, Treatment, Prognosis Family Education/Counseling: Diagnosis, Treatment, Prognosis SEPSIS Sepsis Screen Date sepsis recognized/suspect: Jan 30, 2025 Time Sepsis recognized/suspect: 09 Recent Procedure: No On Antibiotic Therapy: No Respiratory Rate >20: No Heart Rate >90: Yes Temp<36 C (96.8 F) or >38.3 C: No SBP <90 or MAP <65 mmHG: No New Acute Mental Status Change: No Is the patient on CPAP, BIPAP,: No Physician Orders Urinalysis (01/30/25 10:00) Ct Ab Pel Wo Con-No Oral Or Iv (01/30/25 10:00) Heplock Iv (01/30/25 10:00) Blood Culture (01/30/25 10:00) Drug Screen (01/30/25 10:00) Vital Signs Date Time Temp Pulse Resp B/P (MAP) Pulse Ox O2 Delivery O2 Flow Rate FiO2 01/30/25 17:07 104 17 93 Room Air* 0 21 01/30/25 15:05 170/82 01/30/25 14:40 123 21 170/82 (111) 92 01/30/25 13:15 100.7 01/30/25 13:15 198/83 01/30/25 12:00 100.1 122 27 198/96 (130) 90 100.1 01/30/25 11:40 Room Air* 0 21 01/30/25 10:15 208/115 01/30/25 10:00 99.3 117 18 208/115 (146) 94 99.3 01/30/25 09:39 99.1 118 20 219/115 100 99.1 Laboratory Tests Test 01/30/25 10:28 01/30/25 12:39 Lactic Acid Level 3.3 mmol/L (0.4-2.0) *H 2.8 mmol/L (0.4-2.0) *H White Blood Count 13.6 10^3/uL (4.4-10.8) H Medications Medications Dose Ordered Sig/Amisha Route Start Time Stop Time Status Last Admin Dose Admin Acetaminophen 650 mg ONCE ONCE PO 01/30/25 13:15 01/30/25 13:16 DC 01/30/25 13:15 Ceftriaxone Sodium 50 ml @ 100 mls/hr ONCE ONCE IV 01/30/25 13:15 01/30/25 13:44 DC 01/30/25 13:14 Clonidine HCl 0.2 mg ONCE ONCE PO 01/30/25 13:15 01/30/25 13:16 DC 01/30/25 13:15 Hydralazine HCl 20 mg ONCE ONCE IV 01/30/25 10:15 01/30/25 10:16 DC 01/30/25 10:15 Prochlorperazine Edisylate 10 mg ONCE ONCE IV 01/30/25 10:00 01/30/25 10:02 DC 01/30/25 10:14 Sodium Chloride 1,000 ml @ 1,000 mls/hr Q1H ONCE IV 01/30/25 13:30 01/30/25 14:29 DC 01/30/25 13:24 Sodium Chloride 1,000 ml @ 1,000 mls/hr Q1H ONCE IVB 01/30/25 10:00 01/30/25 10:59 DC 01/30/25 10:15 Vancomycin HCl 250 ml @ 250 mls/hr ONCE ONCE IV 01/30/25 14:15 01/30/25 15:14 DC 01/30/25 14:31 Departure 1 Departure Time of Disposition: 17:28 Impression: Primary Impression: Intractable vomiting Additional Impressions: Sepsis Qualified Codes: A41.9 - Sepsis, unspecified organism Uncontrolled diabetes mellitus Qualified Codes: E13.65 - Other specified diabetes mellitus with hyperglycemia Accelerated hypertension Disposition: ADMITTED INPATIENT Admit to: Tele Condition: Fair Critical Care Note Critical Care Time?: Yes (55 min-critical care time only) Stability Stability form required: Yes Unstable for transfer: Telemetry monitoring (Telemetry monitoring required), ED Physician Assesment (Clinical assesment) Heart Score Heart Score: Heart Score Response (Comments) Value History N/A 0 EKG N/A 0 Age N/A 0 Risk Factors N/A 0 Troponin N/A 0 Total 0 I personally scribed for YONATHAN LLOYD MD ([email or web address]) on 01/30/25 at 10:08. Electronically submitted by Radha Eaton ([email or web address]). I personally scribed for YONATHAN LLOYD MD ([email or web address]) on 01/30/25 at 12:31. Electronically submitted by Radha Eaton ([email or web address]). I personally scribed for YONATHAN LLOYD MD ([email or web address]) on 01/30/25 at 17:09. Electronically submitted by Madnie Woodson ([employer]). YONATHAN LLOYD MD Jan 30, 2025 10:08
[2025-01-30] MEDS: PROCHLORPERAZINE EDISYLATE 5 MG/ML 2ML VIAL IV ONE (10:14)
[2025-01-30] MEDS: SODIUM CHLORIDE 0.9% 1,000 ML IVB ONE (10:15)
[2025-01-30] MEDS: hydrALAZINE HCL 20 MG/ML VL IV ONE (10:15)
--- NOTE | 2025-01-30 11:19 | DVH ---
CT CT AB PEL WO CON-NO ORAL OR IV INDICATION: Intractable vomiting EXAM DATE: 01/30/2025 10:42 AM COMPARISON: US KIDNEY on DOS: 12/24/24, CT CT AB PEL WO CON-NO ORAL OR IV on DOS: 12/22/24, CT CT AB PEL WO CON-NO ORAL OR IV on DOS: 04/13/24 RADIATION DOSE: CTDIvol: 24 mGy, DLP: 1396 mGy*cm PROCEDURE: Helical CT images were obtained of the abdomen and pelvis without IV contrast Sagittal and coronal reconstructions are provided. ORAL CONTRAST: None. ADDITIONAL IMAGES / REFORMATS: None All CT scans at this medical facility are performed using dose modulation techniques as appropriate to a performed exam including the following: Automated exposure control was utilized; adjustment of the MA and/or KV according to patient size; and use of iterative reconstruction technique. FINDINGS: LUNG BASE: Normal. LIVER: Normal. GALLBLADDER AND BILIARY TREE: No calcified gallstones. Normal caliber wall. No intra- or extrahepatic biliary ductal dilation. PANCREAS: Normal. SPLEEN: Normal. BOWEL: Normal. Normal appendix. ADRENALS: Normal. KIDNEYS AND URETER: Normal. BLADDER: Normal. REPRODUCTIVE ORGANS: Normal. LYMPH NODES:No lymphadenopathy. PERITONEUM: No ascites or free air. No other fluid collection. VESSELS: Scattered atherosclerotic calcifications are noted. RETROPERITONEUM: Normal. ABDOMINAL WALL: Normal. BONES: Scattered osseous degenerative changes are noted. IMPRESSION: No acute intraabdominal abnormality.
[2025-01-30 11:22] LABS: Anion Gap 16 (5-15); Carbon Dioxide 22 mmol/L (20-31); Chloride 104 mmol/L (98-107); Potassium 3.9 mmol/L (3.5-5.1); Sodium 142 mmol/L (136-145)
[2025-01-30 11:23] LABS: Calcium 9.4 mg/dL (8.7-10.4)
[2025-01-30 11:24] LABS: Hematocrit 37.0 % (41.0-53.0); Hemoglobin 12.0 g/dL (13.5-17.5); Mean Corpuscular Hemoglobin 27.2 pg (28.0-32.0); Mean Corpuscular Volume 83.6 fL (80.0-100.0); Nucleated Red Blood Cells % 0.0 %
[2025-01-30 11:28] LABS: BUN/Creatinine Ratio 9.7 (10.0-20.0); Lipase 47 U/L (12-53)
[2025-01-30 11:30] LABS: Blood Urea Nitrogen 27 mg/dL (9-23); Glucose 364 mg/dL (74-106)
[2025-01-30 11:31] LABS: Lactic Acid w/Reflex 3.3 mmol/L (0.4-2.0)
[2025-01-30] MEDS: ACETAMINOPHEN 325 MG TAB PO ONE (13:15)
[2025-01-30] MEDS: SODIUM CHLORIDE 0.9% 1,000 ML IV ONE (13:24)
[2025-01-30] MEDS: VANCOMYCIN 1GM/250ML KIT 250 ML IV ONE (14:31)
[2025-01-30 17:07] VITALS: PULSE 104; RESP 17; O2SAT 93
[2025-01-30] MEDS ORDERED: DEXTROSE (50%) 50ML SYRG IV PRN (19:30)
[2025-01-30] MEDS ORDERED: ACETAMINOPHEN 325 MG TAB PO PRN (19:30)
[2025-01-30] MEDS ORDERED: HYDROcodone-ACET 5/325MG TAB PO PRN (19:30)
[2025-01-30] MEDS ORDERED: ONDANSETRON HCL 4 MG/2 ML VIAL IV PRN (19:30)
[2025-01-30] MEDS ORDERED: MORPHINE SULFATE INJ 2 MG/ml SYRG IV PRN (19:30)
[2025-01-30] MEDS ORDERED: MORPHINE SULFATE 4 MG/ML SYR/VIAL IV PRN (19:45)
[2025-01-30] MEDS: SODIUM CHLORIDE 0.9% 500 ML IV ONE (19:54)
[2025-01-30] MEDS: PANTOPRAZOLE 40 MG/10 ML VIAL INJ IV ONE (19:54)
[2025-01-30 20:28] LABS: Potassium 4.4 mmol/L (3.5-5.1)
[2025-01-30 20:29] LABS: Anion Gap 12 (5-15); Calcium 8.9 mg/dL (8.7-10.4); Carbon Dioxide 26 mmol/L (20-31)
[2025-01-30 20:34] LABS: BUN/Creatinine Ratio 10.9 (10.0-20.0)
[2025-01-30 20:37] LABS: Blood Urea Nitrogen 30 mg/dL (9-23); Chloride 108 mmol/L (98-107); Glucose 237 mg/dL (74-106); Sodium 146 mmol/L (136-145)
[2025-01-30] MEDS: LABETALOL HCL 20 MG/4 ML VL IV ONE ×2 (20:48→21:05)
--- NOTE | 2025-01-30 21:13 | DVH ---
EXAM: CT HEAD W WO CONTRAST INDICATION: VOMITING HTN TECHNIQUE: CT images of the head were obtained without administration of IV contrast. CT scans at this facility use dose modulation, iterative reconstruction, and/or weight based dosing when appropriate to reduce radiation dose to as low as reasonably achievable. COMPARISON: None FINDINGS: PARENCHYMA: No acute hemorrhage. There is no mass effect, midline shift, or herniation. There is preservation of the best white differentiation. Mild scattered hypoattenuation along the periventricular, centrum semiovale, and deep white matter tracts, which are nonspecific however statistically most likely represent chronic microvascular ischemic change. VENTRICLES: No hydrocephalus. EXTRA-AXIAL SPACES: No extra-axial fluid collections. OTHER: The bony structures are intact. Paranasal sinuses are essentially clear. Increased density in deformity of the right globe correlate with clinical exam. Trace scalp edematous appearance and third-spacing not excluded IMPRESSION: 1. No CT evidence of an acute intracranial abnormality. 2. Increased density in deformity of the right globe correlate with clinical exam.
[2025-01-30] MEDS: InsuLIN REG 1unit/0.01ml Soln (100units/ml) SC SCH (22:00)
[2025-01-30] MEDS: ACCU-CHEK COMFORT CURVE STRIP VI SCH (22:18)
[2025-01-30] MEDS: ATORVASTATIN 20 MG TAB PO SCH (22:20)
--- NOTE | 2025-01-30 22:32 | DVHHP2 ---
History of Present Illness Reason for Visit: Nausea History of Present Illness 49 year old male presents for evaluation of nausea and vomiting. Patient reports a one day history of nausea with vomiting. He also reports his blood pressure being persistently high. He reports being compliant with his antihypertensives. No chest pain or shortness for breath. No other acute complaints reported. Review of Systems Review of Systems Review of systems are currently negative otherwise addressed in HPI. Allergies: Coded Allergies: NO KNOWN ALLERGIES (Unverified , 07/27/23) Medications Current Medications Medications Dose Ordered Sig/Amisha Route Start Time Stop Time Status Last Admin Dose Admin Metronidazole 100 ml @ 100 mls/hr Q8HR IV 01/30/25 22:00 Amlodipine Besylate 10 mg DAILY PO 01/31/25 10:00 Atorvastatin Calcium 20 mg HS PO 01/30/25 22:00 Pantoprazole Sodium 40 mg DAILY IV 01/31/25 10:00 Diagnostic Test (Pha) 1 strip ACHS 01/30/25 22:00 01/30/25 22:18 1 STRIP Insulin Human Regular ACHS SC 01/30/25 22:00 Dextrose 50 ml UD PRN IV 01/30/25 19:30 Acetaminophen/ Hydrocodone Bitart 1 tab Q4HP PRN PO 01/30/25 19:30 Ondansetron HCl 4 mg Q4HP PRN IV 01/30/25 19:30 Acetaminophen 650 mg Q6HP PRN PO 01/30/25 19:30 Morphine Sulfate 2 mg Q6HPRN PRN IV 01/30/25 19:30 UNV Morphine Sulfate 2 mg Q6HPRN PRN IV 01/30/25 19:45 Hydralazine HCl 10 mg Q6HP PRN IV 01/30/25 22:30 UNV Exam Vital Signs Vital Signs Date Time Temp Pulse Resp B/P (MAP) Pulse Ox O2 Delivery O2 Flow Rate FiO2 01/30/25 22:19 100.0 102 18 186/114 (138) 92 100.0 01/30/25 17:07 Room Air* 0 21 Exam Gen: 49-year-old male in mild distress Skin: Warm, dry, normal color and texture, no rash. HEENT: Normocephalic atraumatic, mucous membranes moist and pink. Neck: Cervical and supraclavicular nodes normal without enlargement, trachea is midline, thyroid gland is normal without masses. Pulmonary: Clear to auscultation and percussion bilaterally. Cardiac: Regular rate and rhythm. No murmur Abdomen: Soft, nontender, nondistended, bowel sounds present all 4 quadrants, no guarding, no rigidity, no organomegaly. Extremities: No cyanosis, clubbing, no edema Neuro: Cranial nerves II through XII grossly intact, normal affect and speech, no focal motor deficits. Labs/Xrays ORDERING PHYSICIAN: YONATHAN LLOYD MD PROCEDURE(s): ABPL - CT AB PEL WO CON-NO ORAL OR IV REASON: Intractable vomiting ORDER NUMBER(s): [id number], ACCESSION NUMBER(s): [id number] CT CT AB PEL WO CON-NO ORAL OR IV INDICATION: Intractable vomiting EXAM DATE: 01/30/2025 10:42 AM COMPARISON: US KIDNEY on DOS: 12/24/24, CT CT AB PEL WO CON-NO ORAL OR IV on DOS: 12/22/24, CT CT AB PEL WO CON-NO ORAL OR IV on DOS: 04/13/24 RADIATION DOSE: CTDIvol: 24 mGy, DLP: 1396 mGy*cm PROCEDURE: Helical CT images were obtained of the abdomen and pelvis without IV contrast Sagittal and coronal reconstructions are provided. ORAL CONTRAST: None. ADDITIONAL IMAGES / REFORMATS: None All CT scans at this medical facility are performed using dose modulation techniques as appropriate to a performed exam including the following: Automated exposure control was utilized; adjustment of the MA and/or KV according to patient size; and use of iterative reconstruction technique. FINDINGS: LUNG BASE: Normal. LIVER: Normal. GALLBLADDER AND BILIARY TREE: No calcified gallstones. Normal caliber wall. No intra- or extrahepatic biliary ductal dilation. PANCREAS: Normal. SPLEEN: Normal. BOWEL: Normal. Normal appendix. ADRENALS: Normal. KIDNEYS AND URETER: Normal. BLADDER: Normal. REPRODUCTIVE ORGANS: Normal. LYMPH NODES:No lymphadenopathy. PERITONEUM: No ascites or free air. No other fluid collection. VESSELS: Scattered atherosclerotic calcifications are noted. RETROPERITONEUM: Normal. ABDOMINAL WALL: Normal. BONES: Scattered osseous degenerative changes are noted. IMPRESSION: No acute intraabdominal abnormality. RING PHYSICIAN: JAMSHID PETERSENP PROCEDURE(s): HDCT - HEAD W WO CONTRAST REASON: VOMITING HTN ORDER NUMBER(s): [id number], ACCESSION NUMBER(s): [id number] EXAM: CT HEAD W WO CONTRAST INDICATION: VOMITING HTN TECHNIQUE: CT images of the head were obtained without administration of IV contrast. CT scans at this facility use dose modulation, iterative reconstruction, and/or weight based dosing when appropriate to reduce radiation dose to as low as reasonably achievable. COMPARISON: None FINDINGS: PARENCHYMA: No acute hemorrhage. There is no mass effect, midline shift, or herniation. There is preservation of the best white differentiation. Mild scattered hypoattenuation along the periventricular, centrum semiovale, and deep white matter tracts, which are nonspecific however statistically most likely represent chronic microvascular ischemic change. VENTRICLES: No hydrocephalus. EXTRA-AXIAL SPACES: No extra-axial fluid collections. OTHER: The bony structures are intact. Paranasal sinuses are essentially clear. Increased density in deformity of the right globe correlate with clinical exam. Trace scalp edematous appearance and third-spacing not excluded IMPRESSION: 1. No CT evidence of an acute intracranial abnormality. 2. Increased density in deformity of the right globe correlate with clinical exam. Labs Test 01/30/25 19:38 01/30/25 12:39 01/30/25 10:28 Range/Units Sodium Level 146 H 136-145 mmol/L Potassium Level 4.4 3.5-5.1 mmol/L Chloride Level 108 H 98-107 mmol/L Carbon Dioxide Level 26 20-31 mmol/L Anion Gap 12 5-15 Blood Urea Nitrogen 30 H 9-23 mg/dL Creatinine 2.75 H 0.700-1.30 mg/dL Glomerular Filtration Rate Calc 28 >90 mL/min BUN/Creatinine Ratio 10.9 10.0-20.0 Serum Glucose 237 #H 74-106 mg/dL Calcium Level 8.9 8.7-10.4 mg/dL Lactic Acid Level 2.8 *H 0.4-2.0 mmol/L White Blood Count 13.6 H 4.4-10.8 10^3/uL Red Blood Count 4.42 L 4.5-5.90 10^6/uL Hemoglobin 12.0 L 13.5-17.5 g/dL Hematocrit 37.0 L 41.0-53.0 % Mean Corpuscular Volume 83.6 80.0-100.0 fL Mean Corpuscular Hemoglobin 27.2 L 28.0-32.0 pg Mean Corpuscular Hemoglobin Concent 32.6 32.0-36.0 g/dL Red Cell Distribution Width 15.3 H 11.8-14.3 % Platelet Count 338 140-450 10^3/uL Mean Platelet Volume 8.5 6.9-10.8 fL Neutrophils (%) (Auto) 88.5 H 37.0-80.0 % Lymphocytes (%) (Auto) 6.7 L 10.0-50.0 % Monocytes (%) (Auto) 4.0 0.0-12.0 % Eosinophils (%) (Auto) 0.0 0.0-7.0 % Basophils (%) (Auto) 0.8 0.0-2.0 % Neutrophils # (Auto) 12.0 H 1.6-8.6 10 ^3/uL Lymphocytes # (Auto) 0.9 0.4-5.4 10 ^3/uL Monocytes # (Auto) 0.5 0-1.3 10 ^3/uL Eosinophils # (Auto) 0 0-0.8 10 ^3/uL Basophils # (Auto) 0.1 0-0.2 10 ^3/uL Nucleated Red Blood Cells 0.0 % Lipase 47 12-53 U/L SEPSIS Sepsis Screen Date sepsis recognized/suspect: Jan 30, 2025 Time Sepsis recognized/suspect: 170 Recent Procedure: No On Antibiotic Therapy: Yes Respiratory Rate >20: No Heart Rate >90: Yes Temp<36 C (96.8 F) or >38.3 C: Yes SBP <90 or MAP <65 mmHG: No New Acute Mental Status Change: No Is the patient on CPAP, BIPAP,: No Physician Orders Stool Bacterial Culture (01/30/25 19:16) Metronidazole 500mg/100ml (Flagyl 500mg/ (01/30/25 22:00) Amlodipine Tablet (Norvasc Tablet) (01/31/25 10:00) Atorvastatin (Lipitor) (01/30/25 22:00) Pantoprazole (Protonix) (01/31/25 10:00) Glucose Blood (Accu-Chek Comfort Curve T (01/30/25 22:00) Insulin R (Human) (Insulin R) (01/30/25 22:00) Dextrose 50% Syringe (01/30/25 19:30) Admit (01/30/25 19:16) Hydrocodone-Acet 5/325mg Tab ([place] 32 (01/30/25 19:30) Ondansetron Hcl (Zofran) (01/30/25 19:30) Complete Blood Count (01/31/25 04:00) Condition: Stable (01/30/25 19:16) Acetaminophen Tablet (Tylenol Tablet) (01/30/25 19:30) Bedrest With Bathroom Privileg (01/30/25 19:16) Morphine Sulfate Injection (01/30/25 19:45) Ct Head W Wo Contrast (01/30/25 20:40) Transfer Orders (01/30/25 22:26) Cardiac Diet-2gna,Lofat,Lochol (01/31/25 Breakfast) Hydralazine Injection (Apresoline Inject (01/30/25 22:30) Metoprolol Tartrate Tablet (Lopressor Ta (01/31/25 10:00) Metoprolol Tartrate Tablet (Lopressor Ta (01/30/25 22:30) Vital Signs Date Time Temp Pulse Resp B/P (MAP) Pulse Ox O2 Delivery O2 Flow Rate FiO2 01/30/25 22:19 100.0 102 18 186/114 (138) 92 100.0 01/30/25 21:05 102 205/106 01/30/25 20:48 105 205/106 01/30/25 20:00 100.0 105 18 205/106 (139) 92 100.0 01/30/25 19:40 122 16 170/82 (111) 95 01/30/25 18:00 100.1 102 18 170/82 (111) 92 100.1 01/30/25 17:07 104 17 93 Room Air* 0 21 01/30/25 15:05 170/82 01/30/25 14:40 123 21 170/82 (111) 92 Laboratory Tests Test 01/30/25 12:39 Lactic Acid Level 2.8 mmol/L (0.4-2.0) *H Medications Medications Dose Ordered Sig/Amisha Route Start Time Stop Time Status Last Admin Dose Admin Acetaminophen 650 mg ONCE ONCE PO 01/30/25 13:15 01/30/25 13:16 DC 01/30/25 13:15 650 MG Ceftriaxone Sodium 50 ml @ 100 mls/hr ONCE ONCE IV 01/30/25 13:15 01/30/25 13:44 DC 01/30/25 13:14 100 MLS/HR Clonidine HCl 0.2 mg ONCE ONCE PO 01/30/25 13:15 01/30/25 13:16 DC 01/30/25 13:15 0.2 MG Diagnostic Test (Pha) 1 strip ACHS 01/30/25 22:00 01/30/25 22:18 1 STRIP Labetalol HCl 10 mg ONCE ONCE IV 01/30/25 20:45 01/30/25 20:50 DC 01/30/25 21:05 10 MG Labetalol HCl 20 mg STK-MED ONCE IV 01/30/25 20:45 01/30/25 20:45 DC 01/30/25 20:48 20 MG Pantoprazole Sodium 40 mg ONCE ONCE IV 01/30/25 19:30 01/30/25 19:40 DC 01/30/25 19:54 40 MG Sodium Chloride 500 ml @ 500 mls/hr Q1H ONCE IV 01/30/25 19:30 01/30/25 20:29 DC 01/30/25 19:54 500 MLS/HR Sodium Chloride 1,000 ml @ 1,000 mls/hr Q1H ONCE IV 01/30/25 13:30 01/30/25 14:29 DC 01/30/25 13:24 1,000 MLS/HR Vancomycin HCl 250 ml @ 250 mls/hr ONCE ONCE IV 01/30/25 14:15 01/30/25 15:14 DC 01/30/25 14:31 250 MLS/HR Assessment/Plan Assessment/Plan Assessment Hypertensive urgency Chronic kidney disease Diabetes mellitus Plan Admit the patient to telemetry to the hospitalist Resume home medications As needed antihypertensives Echocardiogram pending Continue treatment per orders. Plan discussed with: Patient My Orders Orders - JAMSHID PETERSEN AGACNAddie Procedure Category Date Status Time Stool Bacterial ROLAN 01/30/25 Logged Culture 19:16 Metronidazole PHA 01/30/25 In Process 500mg/100ml (Flagyl 22:00 Amlodipine Tablet PHA 01/31/25 In Process (Norvasc Tablet) 10:00 Atorvastatin (Lipitor) PHA 01/30/25 In Process 22:00 Pantoprazole PHA 01/31/25 In Process (Protonix) 10:00 Glucose Blood PHA 01/30/25 In Process (Accu-Chek Comfort 22:00 Insulin R (Human) PHA 01/30/25 In Process (Insulin R) 22:00 Dextrose 50% Syringe PHA 01/30/25 In Process 19:30 Admit ADMIT 01/30/25 Transmitted 19:16 Hydrocodone-Acet PHA 01/30/25 In Process 5/325mg Tab ([place] 19:30 Ondansetron Hcl PHA 01/30/25 In Process (Zofran) 19:30 Complete Blood Count LAB 01/31/25 Verified 04:00 Condition: Stable [place] 01/30/25 In Process 19:16 Acetaminophen Tablet PHA 01/30/25 In Process (Tylenol Tablet) 19:30 Bedrest With Bathroom [place] 01/30/25 In Process Privileg 19:16 Morphine Sulfate PHA 01/30/25 In Process Injection 19:45 Ct Head W Wo Contrast CT 01/30/25 Resulted 20:40 Transfer Orders XFER 01/30/25 Transmitted 22:26 Cardiac DIET 01/31/25 Transmitted Diet-2gna,Lofat,Lochol Breakfast Hydralazine Injection PHA 01/30/25 Transmitted (Apresoline Inject 22:30 Metoprolol Tartrate PHA 01/31/25 Transmitted Tablet (Lopressor Ta 10:00 Metoprolol Tartrate PHA 01/30/25 Transmitted Tablet (Lopressor Ta 22:30 Date of Service: Jan 30, 2025 Billing Provider: JAMSHID PETERSEN Common Visit Codes: [id number] INP/OBS CARE (HIGH) JAMSHID PETERSEN Jan 30, 2025 22:32
[2025-01-30 22:57] LABS: Triglycerides 63 mg/dL (< 150)
[2025-01-30 22:59] LABS: Cholesterol 139 mg/dL (< 200); HDL Cholesterol 42 mg/dL (40-59)
[2025-01-30] MEDS: METOPROLOL TARTRATE 25 MG TAB PO ONE (23:10)
[2025-01-30 23:34] VITALS: BP 202/111; PULSE 110; RESP 17; TEMP 98.7; O2SAT 95
[2025-01-31] VITALS (8 sets, daily range): BP systolic 142–198; BP diastolic 85–108; PULSE 99–115; RESP 16–20; TEMP 97.6–98.8; O2SAT 96–100
[2025-01-31] MEDS: hydrALAZINE HCL 20 MG/ML VL IV PRN (03:45)
[2025-01-31 08:38] LABS: Hematocrit 38.4 % (41.0-53.0); Hemoglobin 12.6 g/dL (13.5-17.5); Mean Corpuscular Hemoglobin 27.2 pg (28.0-32.0); Mean Corpuscular Volume 82.8 fL (80.0-100.0); Nucleated Red Blood Cells % 0.0 %
[2025-01-31] MEDS: METOPROLOL TARTRATE 25 MG TAB PO SCH (09:54)
[2025-01-31] MEDS: PANTOPRAZOLE 40 MG/10 ML VIAL INJ IV SCH (09:54)
[2025-01-31] MEDS ORDERED: DEXTROSE (50%) 50ML SYRG IV PRN (11:00)
[2025-01-31] MEDS ORDERED: METOCLOPRAMIDE HCL 5MG/ml INJ 2ml VIAL IV PRN (11:00)
[2025-01-31] MEDS: ACCU-CHEK COMFORT CURVE STRIP VI SCH (11:30)
[2025-01-31] MEDS: InsuLIN REG 1unit/0.01ml Soln (100units/ml) SC SCH ×2 (12:17→22:44)
[2025-01-31 12:43] LABS: Alanine Aminotransferase 22 U/L (7-40); Anion Gap 12 (5-15); Calcium 9.0 mg/dL (8.7-10.4); Carbon Dioxide 24 mmol/L (20-31); Chloride 105 mmol/L (98-107); Potassium 4.2 mmol/L (3.5-5.1); Sodium 141 mmol/L (136-145); Total Protein 7.5 g/dL (5.7-8.2)
[2025-01-31 12:44] LABS: Albumin 4.1 g/dL (3.2-4.8); Alkaline Phosphatase 116 U/L (46-116); BUN/Creatinine Ratio 10.3 (10.0-20.0); Bilirubin, Total 0.7 mg/dL (0.2-1.0); Blood Urea Nitrogen 29 mg/dL (9-23); Glucose 244 mg/dL (74-106)
[2025-01-31 12:59] LABS: Free T4 (Free Thyroxine) 1.37 ng/dL (0.89-1.76)
[2025-01-31] MEDS: POLYETHYLENE GLYCOL 17 GM PWDR PO ONE (13:13)
--- NOTE | 2025-01-31 16:08 | DVHPN2 ---
Subjective I am assuming the care of the patient from today onwards. Patient denies any headache although systolic blood pressure running between 160-200. 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 Medications Current Medications Medications Dose Ordered Sig/Amisha Route Start Time Stop Time Status Last Admin Dose Admin Metronidazole 100 ml @ 100 mls/hr Q8HR IV 01/30/25 22:00 01/31/25 14:11 100 MLS/HR Amlodipine Besylate 10 mg DAILY PO 01/31/25 10:00 01/31/25 09:55 10 MG Atorvastatin Calcium 20 mg HS PO 01/30/25 22:00 01/30/25 22:20 20 MG Pantoprazole Sodium 40 mg DAILY IV 01/31/25 10:00 01/31/25 09:54 40 MG Acetaminophen/ Hydrocodone Bitart 1 tab Q4HP PRN PO 01/30/25 19:30 Ondansetron HCl 4 mg Q4HP PRN IV 01/30/25 19:30 Acetaminophen 650 mg Q6HP PRN PO 01/30/25 19:30 Morphine Sulfate 2 mg Q6HPRN PRN IV 01/30/25 19:30 UNV Morphine Sulfate 2 mg Q6HPRN PRN IV 01/30/25 19:45 Hydralazine HCl 10 mg Q6HP PRN IV 01/30/25 22:30 01/31/25 11:48 10 MG Metoprolol Tartrate 25 mg BID PO 01/31/25 10:00 01/31/25 09:54 25 MG Clonidine HCl 0.1 mg Q6HP PRN PO 01/31/25 07:00 01/31/25 08:22 0.1 MG Diagnostic Test (Pha) 1 strip ACHS 01/31/25 11:30 01/31/25 11:30 1 STRIP Insulin Human Regular HS SC 01/31/25 22:00 Insulin Human Regular AC SC 01/31/25 11:30 01/31/25 12:17 9 UNITS Dextrose 50 ml UD PRN IV 01/31/25 11:00 Metoclopramide HCl 5 mg Q8HPRN PRN IV 01/31/25 11:00 Polyethylene Glycol 17 gm DAILY PO 02/01/25 10:00 Laboratory Results Laboratory Tests 01/31/25 08:09 01/31/25 12:10 Chemistry Test 01/30/25 19:38 01/31/25 12:10 Calcium Level 8.9 mg/dL (8.7-10.4) 9.0 mg/dL (8.7-10.4) Albumin 4.1 g/dL (3.2-4.8) Total Protein 7.5 g/dL (5.7-8.2) Lipid panel Test 01/30/25 19:38 Cholesterol Level 139 mg/dL (< 200) HDL Cholesterol 42 mg/dL (40-59) Triglycerides Level 63 mg/dL (< 150) LFT Test 01/31/25 12:10 Alanine Aminotransferase (ALT) 22 U/L (7-40) Alkaline Phosphatase 116 U/L (46-116) Aspartate Amino Transferase (AST) 26 U/L (13-40) Total Bilirubin 0.7 mg/dL (0.2-1.0) Microbiology Microbiology Date/Time Source Procedure Growth Status 01/30/25 10:28 Blood Blood Culture - Preliminary NO GROWTH AFTER 24 HOURS OF INCUBATION. Resulted Assessment/Plan Assessment/Plan 49-year-old male with a known history of CKD stage 4, hypertension, diabetes mellitus type 2, COPD, dyslipidemia who initially presented to the hospital with a intractable nausea and vomiting and abdominal pain found to have 1. Intractable nausea and vomiting and abdominal pain suspected gastroenteritis currently resolved 2. Acute gastroenteritis, resolved 3. Hypertensive urgency 4. Leukocytosis likely reactive no evidence of any sepsis 5. Acute kidney injury with a underlying CKD stage 4 6. Diabetes mellitus type 2 -adjust blood pressure meds, monitor kidney functioning. Plan discussed with: Patient Date of Service: Jan 31, 2025 Billing Provider: GRACIELA ROBERSON MD Common Visit Codes: [id number] INP/OBS CARE(HIGH) GRACIELA ROBERSON MD Jan 31, 2025 16:08
--- NOTE | 2025-01-31 16:59 | DVHCONRES ---
Date Seen: Jan 31, 2025 Resident Creating Document: ELOISE SCOTT Referring Physician DAVID Khanna Reason for Consultation Abd Pain History of Present Illness Patient is a 49-year-old male with a medical history of insulin-dependent type 2 diabetes mellitus, hypertension, CKD stage 4, COPD, hyperlipidemia presented to the ED with a chief complaint of nausea vomiting for 1 day. Patient had i ntractable nausea vomiting associated with chills and later on had few episodes of diarrhea following which she came to the hospital for further evaluation. Patient was seen to have fever up to 100.7 degree F with tachycardia and elevated WBC count with left shift and elevated lactic acid was likely in sepsis due to gastroenteritis. 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, retinal detachment surgery Family History: Acute gouty arthritis G8 FATHER, Onset:40's - 50 CHF (congestive heart failure) G8 MOTHER, Onset:30's - 40 G8 FATHER Diabetes mellitus G8 MOTHER, Onset:30s - 40 Hypertension G8 MOTHER, Onset:30s - 40 G8 FATHER, Onset:30s - 40 Kidney stones G8 MOTHER Prostate carcinoma G8 FATHER, Onset:40's - 50 Family History History of prostate carcinoma in father Social History Denies smoking, alcohol, drug use and lives with the family Allergies: Coded Allergies: NO KNOWN ALLERGIES (Unverified , 07/27/23) Home Meds Active Scripts Clonidine Hydrochloride (Clonidine Hcl) 0.2 Mg Tab, 1 TAB PO BIDPRN PRN for 30 Days, #60 TAB 0 Refills Prov:ELOISE SCOTT 12/24/24 Amoxicillin & Pot Clavulanate (AUGMENTIN TABLET) 875 Mg Tb, 875 MG PO BID for 7 Days, #14 TAB 0 Refills Prov:ELOISE SCOTT 12/24/24 Pantoprazole Sodium Sesquihydr (Protonix) 40 Mg Tab, 40 MG PO DAILY, #30 TAB Prov:YONATHAN LLOYD MD 04/13/24 Ondansetron Odt 4MG Tab (ZOFRAN PO) 4 Mg Tb, 4 MG PO Q8HP PRN for 7 Days, #21 TAB ODT TAB-DISSOLVE IN MOUTH, THEN SWALLOW Prov:YONATHAN LLOYD MD 04/13/24 Temazepam (Restoril) 15 Mg Cp, 1 CAP PO QPM for 7 Days, #7 CAP 1 Refill Prov:OSCAR SALINAS NP 07/29/23 Chlorthalidone (Chlorthalidone) 25 Mg Tab, 25 MG PO DAILY for 60 Days, #60 TAB Prov:OSCAR SALINAS CORRECTIONAL GUARD 07/29/23 Atorvastatin Calcium (ATORVASTATIN CALCIUM) 20 Mg Tab, 20 MG PO DAILY for 60 Days, #60 TAB Prov:OSCAR SALINAS CORRECTIONAL GUARD 07/29/23 Pioglitazone Hydrochloride (ACTOS TABLET) 30 Mg Tb, 1 TAB PO DAILY, #90 TAB 1 Refill Prov:OSCAR SALINAS NP 07/29/23 Metformin Hydrochloride (Metformin Hcl) 500 Mg Tab, 1 TAB PO BID, #60 TAB 3 Refills Prov:OSCAR SALINAS NP 07/29/23 Metoclopramide HCl (Metoclopramide Hydrochlor) 10 Mg Tab, 5 MG PO Q8HR for 60 Days, #90 TAB Prov:OSCAR SALINAS CORRECTIONAL GUARD 07/29/23 Amlodipine Besylate (NORVASC TABLET) 5 Mg Tb, 10 MG PO DAILY for 60 Days, #120 TAB Prov:OSCAR SALINAS NP 07/29/23 Current Medications Current Medications Medications (Trade) Dose Ordered Sig/Amisha Route PRN Reason Start Time Stop Time Status Last Admin Metronidazole 100 ml @ 100 mls/hr Q8HR IV 01/30/25 22:00 01/31/25 14:11 Amlodipine Besylate (Norvasc Tablet) 10 mg DAILY PO 01/31/25 10:00 01/31/25 09:55 Atorvastatin Calcium (Lipitor) 20 mg HS PO 01/30/25 22:00 01/30/25 22:20 Pantoprazole Sodium (Protonix) 40 mg DAILY IV 01/31/25 10:00 01/31/25 09:54 Diagnostic Test (Pha) (Accu-Chek Comfort Curve T) 1 strip ACHS 01/30/25 22:00 01/31/25 10:54 DC 01/31/25 06:10 Insulin Human Regular (InsuLIN R) ACHS SC 01/30/25 22:00 01/31/25 10:54 DC 01/31/25 06:12 Dextrose 50 ml UD PRN IV Blood Sugar LESS THAN 60 01/30/25 19:30 01/31/25 10:54 DC Acetaminophen/ Hydrocodone Bitart ([place] 5/325MG Tab) 1 tab Q4HP PRN PO MODERATE PAIN (4-6 PAIN SCALE) 01/30/25 19:30 Ondansetron HCl (Zofran) 4 mg Q4HP PRN IV NAUSEA / VOMITING 01/30/25 19:30 Acetaminophen (Tylenol Tablet) 650 mg Q6HP PRN PO PAIN SCALE 1-3 OR TEMP>100.4 01/30/25 19:30 Morphine Sulfate 2 mg Q6HPRN PRN IV SEVERE PAIN (7-10 PAIN SCALE) 01/30/25 19:30 UNV Morphine Sulfate 2 mg Q6HPRN PRN IV SEVERE PAIN (7-10 PAIN SCALE) 01/30/25 19:45 Hydralazine HCl (Apresoline Injection) 10 mg Q6HP PRN IV SBP>150 01/30/25 22:30 01/31/25 11:48 Metoprolol Tartrate (Lopressor Tablet) 25 mg BID PO 01/31/25 10:00 01/31/25 09:54 Clonidine HCl ([place]ap[place] Tablet) 0.1 mg Q6HP PRN PO SBP>160 01/31/25 07:00 01/31/25 08:22 Diagnostic Test (Pha) (Accu-Chek Comfort Curve T) 1 strip ACHS 01/31/25 11:30 01/31/25 11:30 Insulin Human Regular (InsuLIN R) HS SC 01/31/25 22:00 Insulin Human Regular (InsuLIN R) AC SC 01/31/25 11:30 01/31/25 12:17 Dextrose 50 ml UD PRN IV Blood Sugar LESS THAN 60 01/31/25 11:00 Metoclopramide HCl (Reglan Injection) 5 mg Q8HPRN PRN IV NAUSEA / VOMITING 01/31/25 11:00 Polyethylene Glycol (Miralax 17GM Powder) 17 gm DAILY PO 02/01/25 10:00 Review of Systems Patient seen and examined at bedside Reports abdominal pain and nausea vomiting has improved, tolerated breakfast well Did not have any fever, chills at present Vital Signs Vital Signs Date Time Temp Pulse Resp B/P (MAP) Pulse Ox O2 Delivery O2 Flow Rate FiO2 01/31/25 12:40 98.4 99 20 170/85 (113) 100 98.4 01/31/25 08:47 Room Air* 0 21 Physical Exam Gen - no pallor, no scleral icterus Skin - Patients skin is warm and dry. HEENT - normocephalic, atraumatic, dry mucous membranes. Neck - supple, no lymphadenopathy Pulmonary - B/L clear breath sounds cardiovascular - regular S1,S2 heard GI - soft nontender abdomen. Bowel sounds hypoactive Neurological - Patient is alert and oriented x4, following commands Labs/Diagnostic Data Labs Test 01/31/25 12:10 01/31/25 11:59 01/31/25 08:09 01/30/25 19:38 Range/Units Sodium Level 141 # 136-145 mmol/L Potassium Level 4.2 3.5-5.1 mmol/L Chloride Level 105 98-107 mmol/L Carbon Dioxide Level 24 20-31 mmol/L Anion Gap 12 5-15 Blood Urea Nitrogen 29 H 9-23 mg/dL Creatinine 2.81 H 0.700-1.30 mg/dL Glomerular Filtration Rate Calc 27 >90 mL/min BUN/Creatinine Ratio 10.3 10.0-20.0 Serum Glucose 244 H 74-106 mg/dL Lactic Acid Level 1.4 0.4-2.0 mmol/L Calcium Level 9.0 8.7-10.4 mg/dL Total Bilirubin 0.7 0.2-1.0 mg/dL Aspartate Amino Transferase (AST) 26 13-40 U/L Alanine Aminotransferase (ALT) 22 7-40 U/L Alkaline Phosphatase 116 46-116 U/L Total Protein 7.5 5.7-8.2 g/dL Albumin 4.1 3.2-4.8 g/dL Free Thyroxine (T4) Calculated 1.37 0.89-1.76 ng/dL Total Triiodothyronine (TT3) 0.88 0.60-1.81 ng/mL POC Glucose 258 H 70-106 mg/dl White Blood Count 14.4 H 4.4-10.8 10^3/uL Red Blood Count 4.64 4.5-5.90 10^6/uL Hemoglobin 12.6 L 13.5-17.5 g/dL Hematocrit 38.4 L 41.0-53.0 % Mean Corpuscular Volume 82.8 80.0-100.0 fL Mean Corpuscular Hemoglobin 27.2 L 28.0-32.0 pg Mean Corpuscular Hemoglobin Concent 32.8 32.0-36.0 g/dL Red Cell Distribution Width 15.0 H 11.8-14.3 % Platelet Count 347 140-450 10^3/uL Mean Platelet Volume 8.2 6.9-10.8 fL Neutrophils (%) (Auto) 85.4 H 37.0-80.0 % Lymphocytes (%) (Auto) 7.1 L 10.0-50.0 % Monocytes (%) (Auto) 6.4 0.0-12.0 % Eosinophils (%) (Auto) 0.1 0.0-7.0 % Basophils (%) (Auto) 1.0 0.0-2.0 % Neutrophils # (Auto) 12.3 H 1.6-8.6 10 ^3/uL Lymphocytes # (Auto) 1.0 0.4-5.4 10 ^3/uL Monocytes # (Auto) 0.9 0-1.3 10 ^3/uL Eosinophils # (Auto) 0 0-0.8 10 ^3/uL Basophils # (Auto) 0.1 0-0.2 10 ^3/uL Nucleated Red Blood Cells 0.0 % Triglycerides Level 63 < 150 mg/dL Cholesterol Level 139 < 200 mg/dL LDL Cholesterol 81 < 100 mg/dL HDL Cholesterol 42 40-59 mg/dL Test 01/30/25 10:28 Range/Units Lipase 47 12-53 U/L Thyroid Stimulating Hormone (TSH) 0.43 L 0.55-4.78 uIU/mL Microbiology Date/Time Source Procedure Growth Status 01/30/25 10:28 Blood Blood Culture - Preliminary NO GROWTH AFTER 24 HOURS OF INCUBATION. Resulted Assessment Acute abdominal pain Intractable nausea vomiting Sepsis likely due to gastroenteritis RIN on CKD stage IV likely hemodynamically mediated Gastroparesis Plan - IV antibiotics ceftriaxone and metronidazole - Protonix IV daily - MiraLax daily prn - Reglan PRN - IV fluids as needed - continue consistent carb diet Plan discussed with Dr. Peña Plan discussed with: Patient, Other (DULCE James) ELOISE SCOTT RESIDENT Jan 31, 2025 16:59
[2025-01-31] MEDS: InsuLIN REG 1unit/0.01ml Soln (100units/ml) ONE (19:01)
[2025-02-01] VITALS (8 sets, daily range): BP systolic 133–172; BP diastolic 68–89; PULSE 94–110; RESP 17–20; TEMP 98.6–99; O2SAT 14–100
[2025-02-01] MEDS ORDERED: POLYETHYLENE GLYCOL 17 GM PWDR PO SCH (10:00)
--- NOTE | 2025-02-01 11:46 | ECG ---
[facility] Test Date: 2025-01-31 Test Time: 11:46:53 Pat Name: HEAVENLY MAZARIEGOS Department[facility] Patient [facility]: [id number] Room: 0220 B Gender: M Data Clerk: EULOGIO : 1975 Requested By: ELOISE SCOTT Order Number: [id number] Reading MD: Stephane Heller Measurements Intervals [place] Rate: 97 P: 111 [place]: 193 QRS: 2 QRSD: 101 T: 74 QT: 410 QTc: 521 Interpretive Statements Sinus rhythm Borderline T wave abnormalities Prolonged QT interval Baseline wander in lead(s) V2 Electronically Signed On 02-04-2025 15:39:26 PST by Stephane Heller Please click the below link to view image of tracing.
[2025-02-01] MEDS: LISINOPRIL 20 MG TAB PO ONE (15:56)
--- NOTE | 2025-02-01 16:48 | DVHPN2 ---
Subjective Patient's systolic blood pressure still more than 160, clonidine scheduled has been added as as well as hydralazine added. Changes from previous H/P or p: No Changes Objective Vitals Vital Signs Date Time Temp Pulse Resp B/P (MAP) Pulse Ox O2 Delivery O2 Flow Rate FiO2 02/01/25 15:56 142/87 02/01/25 13:20 98.9 100 17 99 98.9 02/01/25 08:00 Room Air* 0 21 Intake/Output Intake and Output 02/01/25 07:00 Intake Total 1840 ml Balance 1840 ml Intake Oral 1640 ml IV Total 200 ml # Voids 5 # Bowel Movements 2 Exam HEENT pupils are reactive Neck is supple CV is S1-S2 regular rate and rhythm Respiratory bilateral clear GI positive bowel sound Extremity no edema [employer]IC [employer] no motor deficit Medications Current Medications Medications Dose Ordered Sig/Amisha Route Start Time Stop Time Status Last Admin Dose Admin Metronidazole 100 ml @ 100 mls/hr Q8HR IV 01/30/25 22:00 02/01/25 15:56 100 MLS/HR Amlodipine Besylate 10 mg DAILY PO 01/31/25 10:00 02/01/25 09:32 10 MG Atorvastatin Calcium 20 mg HS PO 01/30/25 22:00 01/31/25 22:45 20 MG Pantoprazole Sodium 40 mg DAILY IV 01/31/25 10:00 02/01/25 09:32 40 MG Acetaminophen/ Hydrocodone Bitart 1 tab Q4HP PRN PO 01/30/25 19:30 Ondansetron HCl 4 mg Q4HP PRN IV 01/30/25 19:30 Acetaminophen 650 mg Q6HP PRN PO 01/30/25 19:30 Morphine Sulfate 2 mg Q6HPRN PRN IV 01/30/25 19:30 UNV Morphine Sulfate 2 mg Q6HPRN PRN IV 01/30/25 19:45 Hydralazine HCl 10 mg Q6HP PRN IV 01/30/25 22:30 02/01/25 00:52 10 MG Metoprolol Tartrate 25 mg BID PO 01/31/25 10:00 02/01/25 09:32 25 MG Diagnostic Test (Pha) 1 strip ACHS 01/31/25 11:30 02/01/25 11:59 1 STRIP Insulin Human Regular HS SC 01/31/25 22:00 01/31/25 22:44 2 UNITS Insulin Human Regular AC SC 01/31/25 11:30 02/01/25 11:59 3 UNITS Dextrose 50 ml UD PRN IV 01/31/25 11:00 Metoclopramide HCl 5 mg Q8HPRN PRN IV 01/31/25 11:00 Ceftriaxone Sodium 50 ml @ 100 mls/hr DAILY@09 IV 02/01/25 09:00 02/01/25 08:41 100 MLS/HR Polyethylene Glycol 17 gm DAILYPRN PRN PO 02/01/25 10:00 Clonidine HCl 0.2 mg BID PO 02/01/25 22:00 UNV Laboratory Results Laboratory Tests 01/31/25 08:09 01/31/25 12:10 Microbiology Microbiology Date/Time Source Procedure Growth Status 01/30/25 10:28 Blood Blood Culture - Preliminary NO GROWTH AFTER 48 HOURS OF INCUBATION. Resulted Assessment/Plan Assessment/Plan 49-year-old male with a known history of CKD stage 4, hypertension, diabetes mellitus type 2, COPD, dyslipidemia who initially presented to the hospital with a intractable nausea and vomiting and abdominal pain found to have 1. Intractable nausea and vomiting and abdominal pain suspected gastroenteritis currently resolved 2. Acute gastroenteritis, resolved 3. Hypertensive urgency 4. Leukocytosis likely reactive no evidence of any sepsis 5. Acute kidney injury with a underlying CKD stage 4 6. Diabetes mellitus type 2 -monitor BMP, add scheduled clonidine as well as hydralazine. Plan discussed with: Patient My Orders Orders - GRACIELA ROBERSON MD Procedure Category Date Status Time Clonidine Hcl Tablet PHA 02/01/25 Logged (Catapres Tablet) 22:00 Hydralazine Hcl PHA 02/01/25 Logged Tablet (Apresoline 22:00 Date of Service: Feb 01, 2025 Billing Provider: GRACIELA ROBERSON MD Common Visit Codes: [id number] INP/OBS CARE(HIGH) GRACIELA ROBERSON MD Feb 01, 2025 16:48
--- NOTE | 2025-02-01 17:01 | DVHPN2 ---
Progress Note Date Seen: Feb 01, 2025 Resident Creating Document: JHOrianaJELOISE Garduno RESIDENT Medical Necessity Reason Pt with a Central, PICC or Fol: No Subjective Review of Systems Patient seen and examined with the bedside Sleeping comfortably Reportedly has nausea mild but he denied Reglan said he can tolerate it Tolerating diet well Did not have a bowel movement overnight and today Objective vital signs Vital Sign Date Time Temp Pulse Resp B/P (MAP) Pulse Ox O2 Delivery O2 Flow Rate FiO2 02/01/25 16:49 98.8 94 17 135/68 (90) 98 98.8 02/01/25 08:00 Room Air* 0 21 Total Intake and Output 01/31/25 01/31/25 02/01/25 15:00 23:00 07:00 Intake Total 840 ml 100 ml 900 ml Balance 840 ml 100 ml 900 ml medications Current Medications Medications Dose Ordered Sig/Amisha Route Start Time Stop Time Status Last Admin Dose Admin Metronidazole 100 ml @ 100 mls/hr Q8HR IV 01/30/25 22:00 02/01/25 15:56 100 MLS/HR Amlodipine Besylate 10 mg DAILY PO 01/31/25 10:00 02/01/25 09:32 10 MG Atorvastatin Calcium 20 mg HS PO 01/30/25 22:00 01/31/25 22:45 20 MG Pantoprazole Sodium 40 mg DAILY IV 01/31/25 10:00 02/01/25 09:32 40 MG Acetaminophen/ Hydrocodone Bitart 1 tab Q4HP PRN PO 01/30/25 19:30 Ondansetron HCl 4 mg Q4HP PRN IV 01/30/25 19:30 Acetaminophen 650 mg Q6HP PRN PO 01/30/25 19:30 Morphine Sulfate 2 mg Q6HPRN PRN IV 01/30/25 19:30 UNV Morphine Sulfate 2 mg Q6HPRN PRN IV 01/30/25 19:45 Hydralazine HCl 10 mg Q6HP PRN IV 01/30/25 22:30 02/01/25 00:52 10 MG Metoprolol Tartrate 25 mg BID PO 01/31/25 10:00 02/01/25 09:32 25 MG Diagnostic Test (Pha) 1 strip ACHS 01/31/25 11:30 02/01/25 11:59 1 STRIP Insulin Human Regular HS SC 01/31/25 22:00 01/31/25 22:44 2 UNITS Insulin Human Regular AC SC 01/31/25 11:30 02/01/25 11:59 3 UNITS Dextrose 50 ml UD PRN IV 01/31/25 11:00 Metoclopramide HCl 5 mg Q8HPRN PRN IV 01/31/25 11:00 Ceftriaxone Sodium 50 ml @ 100 mls/hr DAILY@09 IV 02/01/25 09:00 02/01/25 08:41 100 MLS/HR Polyethylene Glycol 17 gm DAILYPRN PRN PO 02/01/25 10:00 Clonidine HCl 0.2 mg BID PO 02/01/25 22:00 UNV Hydralazine HCl 50 mg Q12HR PO 02/01/25 22:00 UNV Examination Gen - no pallor, no scleral icterus Skin - Patients skin is warm and dry. HEENT - normocephalic, atraumatic, dry mucous membranes. Neck - supple, no lymphadenopathy Pulmonary - B/L clear breath sounds cardiovascular - regular S1,S2 heard GI - soft nontender abdomen. Bowel sounds hypoactive Neurological - Patient is alert and oriented x4, following commands laboratory and microbiology Laboratory Tests 01/31/25 12:10 01/31/25 08:09 Test 01/31/25 12:10 Range/Units Serum Glucose 244 H 74-106 mg/dL Microbiology Date/Time Source Procedure Growth Status 01/30/25 10:28 Blood Blood Culture - Preliminary NO GROWTH AFTER 48 HOURS OF INCUBATION. Resulted Problem List/Assessment/Plan Problem List/Assessment/Plan Acute abdominal pain Intractable nausea vomiting Sepsis likely due to gastroenteritis RIN on CKD stage IV likely hemodynamically mediated Gastroparesis Plan - IV antibiotics ceftriaxone and metronidazole - Protonix IV daily - MiraLax daily prn - Reglan PRN - IV fluids as needed - continue consistent carb diet Plan discussed with Dr. Peña Plan discussed with: Patient, Other (DULCE Garcia) ELOISE SCOTT RESIDENT Feb 01, 2025 17:01
[2025-02-01] MEDS: POLYETHYLENE GLYCOL 17 GM PWDR PO PRN (21:55)
[2025-02-02 01:00] VITALS: BP 134/85; PULSE 85; RESP 16; TEMP 98.3; O2SAT 99
[2025-02-02 05:00] VITALS: BP 142/89; PULSE 84; RESP 16; TEMP 98.2; O2SAT 98
[2025-02-02 07:57] VITALS: PULSE 95; RESP 18
[2025-02-02 08:00] VITALS: PULSE 90
[2025-02-02 08:43] VITALS: BP 145/85; PULSE 90; RESP 17; TEMP 97.6; O2SAT 97
[2025-02-02] MEDS ORDERED: LISINOPRIL 20 MG TAB PO SCH (10:00)
[2025-02-02 12:40] VITALS: BP 113/75; PULSE 82; RESP 17; TEMP 97.2; O2SAT 98
[2025-02-02] MEDS ORDERED: HYDR25TA87 PO (13:49)
[2025-02-02] MEDS ORDERED: MET25T PO (13:49)
--- NOTE | 2025-02-02 13:58 | DVHDS2 ---
Discharge Summary Date of Admission Jan 30, 2025 at 19:16 Date of Discharge: Feb 02, 2025 Labs/Diagnostic Data: Laboratory Results Test 02/02/25 10:52 01/31/25 12:10 01/31/25 08:09 01/30/25 19:38 POC Glucose 159 mg/dl (70-106) Sodium Level 141 mmol/L (136-145) Potassium Level 4.2 mmol/L (3.5-5.1) Chloride Level 105 mmol/L (98-107) Carbon Dioxide Level 24 mmol/L (20-31) Anion Gap 12 (5-15) Blood Urea Nitrogen 29 mg/dL (9-23) Creatinine 2.81 mg/dL (0.700-1.30) Glomerular Filtration Rate Calc 27 mL/min (>90) BUN/Creatinine Ratio 10.3 (10.0-20.0) Serum Glucose 244 mg/dL (74-106) Lactic Acid Level 1.4 mmol/L (0.4-2.0) Calcium Level 9.0 mg/dL (8.7-10.4) Total Bilirubin 0.7 mg/dL (0.2-1.0) Aspartate Amino Transferase (AST) 26 U/L (13-40) Alanine Aminotransferase (ALT) 22 U/L (7-40) Alkaline Phosphatase 116 U/L (46-116) Total Protein 7.5 g/dL (5.7-8.2) Albumin 4.1 g/dL (3.2-4.8) Free Thyroxine (T4) Calculated 1.37 ng/dL (0.89-1.76) Total Triiodothyronine (TT3) 0.88 ng/mL (0.60-1.81) White Blood Count 14.4 10^3/uL (4.4-10.8) Red Blood Count 4.64 10^6/uL (4.5-5.90) Hemoglobin 12.6 g/dL (13.5-17.5) Hematocrit 38.4 % (41.0-53.0) Mean Corpuscular Volume 82.8 fL (80.0-100.0) Mean Corpuscular Hemoglobin 27.2 pg (28.0-32.0) Mean Corpuscular Hemoglobin Concent 32.8 g/dL (32.0-36.0) Red Cell Distribution Width 15.0 % (11.8-14.3) Platelet Count 347 10^3/uL (140-450) Mean Platelet Volume 8.2 fL (6.9-10.8) Neutrophils (%) (Auto) 85.4 % (37.0-80.0) Lymphocytes (%) (Auto) 7.1 % (10.0-50.0) Monocytes (%) (Auto) 6.4 % (0.0-12.0) Eosinophils (%) (Auto) 0.1 % (0.0-7.0) Basophils (%) (Auto) 1.0 % (0.0-2.0) Neutrophils # (Auto) 12.3 10 ^3/uL (1.6-8.6) Lymphocytes # (Auto) 1.0 10 ^3/uL (0.4-5.4) Monocytes # (Auto) 0.9 10 ^3/uL (0-1.3) Eosinophils # (Auto) 0 10 ^3/uL (0-0.8) Basophils # (Auto) 0.1 10 ^3/uL (0-0.2) Nucleated Red Blood Cells 0.0 % Triglycerides Level 63 mg/dL (< 150) Cholesterol Level 139 mg/dL (< 200) LDL Cholesterol 81 mg/dL (< 100) HDL Cholesterol 42 mg/dL (40-59) Test 01/30/25 10:28 Lipase 47 U/L (12-53) Thyroid Stimulating Hormone (TSH) 0.43 uIU/mL (0.55-4.78) Other Laboratory Tests 01/31/25 12:10 01/31/25 08:09 Brief Hx & Hospital Course: 49-year-old male with a known history of CKD stage 4, hypertension, diabetes mellitus type 2, COPD, dyslipidemia who initially presented to the hospital with a intractable nausea and vomiting and abdominal pain found to have acute viral gastroenteritis. Patient's sepsis has been ruled out. Patient's has a hypertensive urgency eventually medication were adjusted. Patient does have known history of CKD stage 4. Patient is being discharged under stable condition with a close follow up as an outpatient with the PCP with a repeat BMP. 1 Condition at Discharge: Stable Final Diagnosis/Problems List 49-year-old male with a known history of CKD stage 4, hypertension, diabetes mellitus type 2, COPD, dyslipidemia who initially presented to the hospital with a intractable nausea and vomiting and abdominal pain found to have 1. Intractable nausea and vomiting and abdominal pain suspected gastroenteritis currently resolved 2. Acute gastroenteritis, resolved 3. Hypertensive urgency 4. Leukocytosis likely reactive no evidence of any sepsis 5. Acute kidney injury with a underlying CKD stage 4 6. Diabetes mellitus type 2 Discharge Disposition: Home SNF Discharge Will this Physician continue t: No Discharge Instruct/Medications Diet: Cardiac 2g Na,low cholest Diet comment: 1800 ADA diet Activity: No Restrictions, As Tolerated Follow Up/Referral: Please follow up with the PCP in 1-2 weeks with a repeat BMP Please follow up as an outpatient with the your own nib adjuster,/Dr. Sotelo/Dr. Nancy kinney or any other nib adjuster with a repeat BMP. Medications: Medication as prescribed and reconciled. New Medications: Hydralazine HCl (Hydralazine HCl) 25 Mg Tab 50 MG PO Q12HR for 30 Days, #120 TAB Metoprolol Tartrate (Lopressor) 25 Mg Tb 25 MG PO BID, #60 TAB Continued Medications: Amlodipine Besylate (Norvasc Tablet) 5 Mg Tb 10 MG PO DAILY for 60 Days, #120 TAB Atorvastatin Calcium (Atorvastatin Calcium) 20 Mg Tab 20 MG PO DAILY for 60 Days, #60 TAB Chlorthalidone (Chlorthalidone) 25 Mg Tab 25 MG PO DAILY for 60 Days, #60 TAB Metoclopramide HCl (Metoclopramide Hydrochlor) 10 Mg Tab 5 MG PO Q8HR for 60 Days, #90 TAB Ondansetron Odt 4MG Tab (Zofran Po) 4 Mg Tb 4 MG PO Q8HP PRN for 7 Days, #21 TAB ODT TAB-DISSOLVE IN MOUTH, THEN SWALLOW Pioglitazone Hydrochloride (Actos Tablet) 30 Mg Tb 1 TAB PO DAILY, #90 TAB 1 Refill Temazepam (Restoril) 15 Mg Cp 1 CAP PO QPM for 7 Days, #7 CAP 1 Refill Discontinued Medications: Clonidine Hydrochloride (Clonidine Hcl) 0.2 Mg Tab 1 TAB PO BIDPRN PRN for 30 Days, #60 TAB 0 Refills Scheduled Amlodipine Besylate (Norvasc Tablet), 10 MG PO DAILY Atorvastatin Calcium (Atorvastatin Calcium), 20 MG PO DAILY Chlorthalidone (Chlorthalidone), 25 MG PO DAILY Hydralazine HCl (Hydralazine HCl), 50 MG PO Q12HR Metoclopramide HCl (Metoclopramide Hydrochlor), 5 MG PO Q8HR Metoprolol Tartrate (Lopressor), 25 MG PO BID Pioglitazone Hydrochloride (Actos Tablet), 1 TAB PO DAILY Temazepam (Restoril), 1 CAP PO QPM Scheduled PRN Ondansetron Odt 4MG Tab (Zofran Po), 4 MG PO Q8HP PRN Discontinued Medications Clonidine Hydrochloride (Clonidine Hcl), 1 TAB PO BIDPRN PRN Discharge Statement: "Patient was advised to return to the ER or call 911 if any headaches, dizziness, shortness of breath, chest pain, abdominal pain, bleeding, fevers, or worsening of medical condition. Patient was counseled about treatment plan, medications, possible side effects, patientverbalized understanding. All questions were answered to the best of my ability. This discharge took greater then 30 minutes in planning, reviewing documentation, counseling the patient, and discussing with other team members." ASSESSMENT ASSESSMENT Assessment 49-year-old male with a known history of CKD stage 4, hypertension, diabetes mellitus type 2, COPD, dyslipidemia who initially presented to the hospital with a intractable nausea and vomiting and abdominal pain found to have 1. Intractable nausea and vomiting and abdominal pain suspected gastroenteritis currently resolved 2. Acute gastroenteritis, resolved 3. Hypertensive urgency 4. Leukocytosis likely reactive no evidence of any sepsis 5. Acute kidney injury with a underlying CKD stage 4 6. Diabetes mellitus type 2 Date of Service: Feb 02, 2025 Billing Provider: GRACIELA ROBERSON MD Common Visit Codes: [id number] DISCH DAY >30min GRACIELA ROBERSON MD Feb 02, 2025 13:58
[2025-02-02 14:37] LABS: Hematocrit 35.4 % (41.0-53.0); Hemoglobin 11.7 g/dL (13.5-17.5); Mean Corpuscular Hemoglobin 27.4 pg (28.0-32.0); Mean Corpuscular Volume 82.7 fL (80.0-100.0); Nucleated Red Blood Cells % 0.0 %
[2025-02-02 14:51] LABS: Chloride 102 mmol/L (98-107); Potassium 3.9 mmol/L (3.5-5.1); Sodium 139 mmol/L (136-145)
[2025-02-02 14:52] LABS: Anion Gap 12 (5-15); Carbon Dioxide 25 mmol/L (20-31)
[2025-02-02 14:56] LABS: Calcium 8.4 mg/dL (8.7-10.4)
[2025-02-02 14:58] LABS: BUN/Creatinine Ratio 11.7 (10.0-20.0)
[2025-02-02 15:02] LABS: Blood Urea Nitrogen 36 mg/dL (9-23); Glucose 150 mg/dL (74-106)
[2025-02-02] MEDS ORDERED: POLY33505 PO (15:49)
[2025-02-02] MEDS ORDERED: SENN8.6C PO (15:49)
--- NOTE | 2025-02-02 15:50 | DVHPN2 ---
Progress Note Date Seen: Feb 02, 2025 Resident Creating Document: ELOISE SCOTT Medical Necessity Reason Pt with a Central, PICC or Fol: No Subjective Review of Systems Patient had a bowel movement today Tolerating diet well Denies any nausea vomiting Objective vital signs Vital Sign Date Time Temp Pulse Resp B/P (MAP) Pulse Ox O2 Delivery O2 Flow Rate FiO2 02/02/25 12:40 97.2 82 17 113/75 (88) 98 97.2 02/02/25 07:57 Room Air* 0 21 Total Intake and Output 02/01/25 02/01/25 02/02/25 15:00 23:00 07:00 Intake Total 100 ml 1050 ml Output Total 0 ml Balance 100 ml 1050 ml medications Current Medications Medications Dose Ordered Sig/Amisha Route Start Time Stop Time Status Last Admin Dose Admin Morphine Sulfate 2 mg Q6HPRN PRN IV 01/30/25 19:30 UNV Examination Gen - no pallor, no scleral icterus Skin - Patients skin is warm and dry. HEENT - normocephalic, atraumatic, dry mucous membranes. Neck - supple, no lymphadenopathy Pulmonary - B/L clear breath sounds cardiovascular - regular S1,S2 heard GI - soft nontender abdomen. Bowel sounds hypoactive Neurological - Patient is alert and oriented x4, following commands laboratory and microbiology Laboratory Tests 02/02/25 13:54 Test 02/02/25 13:54 Range/Units Serum Glucose 150 H 74-106 mg/dL Microbiology Date/Time Source Procedure Growth Status 01/30/25 10:28 Blood Blood Culture - Preliminary NO GROWTH AFTER 72 HOURS OF INCUBATION. Resulted Problem List/Assessment/Plan Problem List/Assessment/Plan Acute abdominal pain Intractable nausea vomiting Sepsis likely due to gastroenteritis RIN on CKD stage IV likely hemodynamically mediated Gastroparesis Plan - MiraLax and senna daily - Reglan as needed - red blood glucose controlled recommended, advised to follow up with the PCP and may need increase in insulin - follow up in the GI Clinic outpatient in 2-4 weeks Plan discussed with Dr. Peña Plan discussed with: Patient, Other (DULCE Sifuentes) ELOISE SCOTT RESIDENT Feb 02, 2025 15:50
--- NOTE | 2025-02-03 07:24 | ECG ---
[facility] Test Date: 2025-01-31 Test Time: 11:43:36 Pat Name: HEAVENLY MAZARIEGOS Department: [facility] ED Patient ID: [facility]-[id number] Room: 0220 B Gender: M [employer]: [employer] : [id number] Requested By: ELOISE SCOTT Order Number: [id number] Reading MD: Stephane Heller Measurements Intervals [place] Rate: 96 P: 83 ME: 151 QRS: 3 QRSD: 103 T: 74 QT: 390 QTc: 493 Interpretive Statements Incomplete analysis due to missing data in precordial lead(s) Sinus rhythm Abnormal R-wave progression, late transition Borderline prolonged QT interval Missing lead(s): V6 Electronically Signed On 02-04-2025 15:39:20 PST by Stephane Heller Please click the below link to view image of tracing.
== END 2025-02-02 14:37 | disposition home or self-care (01) | DRG 391 ==
LOC: ER 09:38 → OVERFLOW 19:16 → CENTRAL 01-31 21:41
PROVIDERS: ADMIT Internal Medicine; ATTEND Internal Medicine
DX: A08.4 Viral intestinal infection, unspecified (principal); N17.0 Acute kidney failure with tubular necrosis; N18.4 Chronic kidney disease, stage 4 (severe); E11.22 Type 2 diabetes mellitus with diabetic chronic kidney disease; I12.9 Hypertensive chronic kidney disease with stage 1 through stage 4 chronic kidney disease, or unspecified chronic kidney disease; J44.9 Chronic obstructive pulmonary disease, unspecified; I16.0 Hypertensive urgency; E78.5 Hyperlipidemia, unspecified; Z83.3 Family history of diabetes mellitus; Z82.49 Family history of ischemic heart disease and other diseases of the circulatory system; Z79.4 Long term (current) use of insulin; Z82.61 Family history of arthritis; Z80.42 Family history of malignant neoplasm of prostate; Z84.19 Family history of other disorders of kidney and ureter; E11.65 Type 2 diabetes mellitus with hyperglycemia
CPT/HCPCS: 36415; 70470; 74176; 80048; 80053; 80061; 82962; 83605; 83690; 84439; 84443; 84480; 85025; 87040; 93005; 96361; 96365; 96375; 99291; G0378; J1815; J2470; J3490

== ENCOUNTER 2025-02-15 10:15 | Emergency (ER) | payer OTHER ==
[~2025-02-15] VITALS: Ht 177.8 cm; Wt 100.9 kg
[~2025-02-15 10:15] MED LIST changes: -AUG875T PO; -CLON0.2T PO; +HYDR25TA87 PO; +MET25T PO; -METF-370 PO; -PANT40TA2 PO; +POLY33505 PO; +SENN8.6C PO
--- NOTE | 2025-02-15 11:29 | ED.PDOC ---
GI ASSESSMENT HPI Comments 49y M who presents to the ED for chief complaint of nausea and vomiting. Pt has been having nausea and vomiting since Friday, 3 days prior and started to have associated diffuse abdominal pain. Pt states he has also not been able to keep anything down and has been having weakness, malaise , chills and felt like he was going to pass out and came to the ED for further evaluation. Pt also states last bowel movement is 5x days ago. Pt denies sick contacts or changes to diet. Pt has noted history of CKD stage 4, hypertension, diabetes mellitus type 2, COPD, dyslipidemia and was discharged 1x month from DM after being hospitalize for similar symptoms. Chief Complaint: Nausea/Vomiting Time Seen by MD: 11:27 Primary Care Provider: calvin Reviewed Notes: Medications, Allergies Allergies: Coded Allergies: NO KNOWN ALLERGIES (Unverified , 07/27/23) Home Meds Active Scripts Sennosides (Senna) 8.6 Mg Cap, 17.2 MG PO HS for 30 Days, #60 CAP 0 Refills Prov:ELOISE SCOTT 02/02/25 Polyethylene Glycol (Miralax) 17 Gm/Scoop Pow, 17 GM PO DAILY for 30 Days, #30 POW 0 Refills Prov:ELOISE SCOTT 02/02/25 Metoprolol Tartrate (Lopressor) 25 Mg Tb, 25 MG PO BID, #60 TAB Prov:GRACIELA ROBERSON MD 02/02/25 Hydralazine HCl (Hydralazine HCl) 25 Mg Tab, 50 MG PO Q12HR for 30 Days, #120 TAB Prov:GRACIELA ROBERSON MD 02/02/25 Ondansetron Odt 4MG Tab (ZOFRAN PO) 4 Mg Tb, 4 MG PO Q8HP PRN for 7 Days, #21 TAB ODT TAB-DISSOLVE IN MOUTH, THEN SWALLOW Prov:YONATHAN LLOYD MD 04/13/24 Temazepam (Restoril) 15 Mg Cp, 1 CAP PO QPM for 7 Days, #7 CAP 1 Refill Prov:OSCAR SALINAS NP 07/29/23 Chlorthalidone (Chlorthalidone) 25 Mg Tab, 25 MG PO DAILY for 60 Days, #60 TAB Prov:OSCAR SALINAS NP 07/29/23 Atorvastatin Calcium (ATORVASTATIN CALCIUM) 20 Mg Tab, 20 MG PO DAILY for 60 Days, #60 TAB Prov:OSCAR SALINAS ROLL EXAMINER 07/29/23 Pioglitazone Hydrochloride (ACTOS TABLET) 30 Mg Tb, 1 TAB PO DAILY, #90 TAB 1 Refill Prov:OSCAR SALINAS ROLL EXAMINER 07/29/23 Metoclopramide HCl (Metoclopramide Hydrochlor) 10 Mg Tab, 5 MG PO Q8HR for 60 Days, #90 TAB Prov:OSCAR SALINAS ROLL EXAMINER 07/29/23 Amlodipine Besylate (NORVASC TABLET) 5 Mg Tb, 10 MG PO DAILY for 60 Days, #120 TAB Prov:OSCAR SALINAS ROLL EXAMINER 07/29/23 Information Source: Patient, Spouse Mode of Arrival: Ambulatory Brought in by: spouse Past Medical History PAST MEDICAL HISTORY: CKF, DM, High Lipids, HTN Surgical History: Denies all surgeries Family History Family History: Family hx of DM, Family hx of heart gianfranco Social History Smoker: Non-Smoker Alcohol: Rarely Drugs: Denies Drug Use Lives In: Home Constitutional: reports: malaise, weakness; denies: chills, diaphoresis, fatigue, fever, sweats, others EENTM: denies: blurred vision, double vision, ear bleeding, ear discharge, ear drainage, ear pain, ear ringing, eye pain, eye redness, hearing loss, mouth pa in, mouth swelling, nasal discharge, nose bleeding, nose congestion, nose pain, photophobia, tearing, throat pain, throat swelling, voice changes, others Respiratory: denies: cough, hemoptysis, orthopnea, SOB at rest, shortness of breath, SOB with excertion, stridor, wheezing, others Cardiovascular: denies: chest pain, dizzy spells, diaphoresis, Dyspnea on exertion, edema, irregular heart beat, left arm pain, lightheadedness, palpitations, PND, syncope, others Gastrointestinal: reports: abdominal pain, diarrhea, nausea, vomiting; denies: abdomen distended, blood streaked bowels, constipated, dysphagia, difficulty swallowing, hematemesis, melena, poor appetite, poor fluid intake, rectal bleeding, rectal pain, others Genitourinary: denies: burning, dysuria, flank pain, frequency, hematuria, incontinence, penile discharge, penile sore, pain, testicle pain, testicle swelling, urgency, others Neurological: denies: dizziness, fainting, headache, left sided numbness, left sided weakness, numbness, paresthesia, pre-existing deficit, right sided numbness, right sided weakness, seizure, speech problems, tingling, tremors, weakness, others Musculoskeletal: denies: back pain, gout, joint pain, joint swelling, muscle pain, muscle stiffness, neck pain, others Integumetry: denies: bruises, change in color, change in hair/nails, dryness, laceration, lesions, lumps, rash, wounds, others Allergic/Immunocompromised: denies: Difficulty Healing, Frequent Infections, Hives, Itching, others Hematologic/Lymphatic: denies: anemia, blood clots, easy bleeding, easy bruising, swollen glands, others Endocrine: denies: excessive hunger, excessive sweating, excessive thirst, excessive urination, flushing, intolerance to cold, intolerance to heat, unexplained weight gain, unexplained weight loss, others Psychiatric: denies: anxiety, bipolar disorder, depression, hopeless, panic disorder, schizophrenia, sleepless, suicidal, others All Other Systems: Reviewed and Negative Physical Exam General Appearance: No Apparent Distress, Normal HEENT: Normal ENT Inspection, Pharynx Normal, TMs Normal Neck: Full Range of Motion, Non-Tender, Normal, Normal Inspection Respiratory: Chest Non-Tender, Lungs Clear, No Accessory Muscle Use, No Respiratory Distress, Normal Breath Sounds Cardiovascular: No Edema, No JVD, No Murmur, No Gallop, Normal Peripheral Pulses, Regular Rate/Rhythm Breast Exam: Deferred Gastrointestinal: No Organomegaly, Non Tender, No Pulsatile Mass, Normal Bowel Sounds, Soft Genitalia: Deferred Pelvic: Deferred Rectal: Deferred Extremities: No calf tenderness, Normal capillary refill, Normal inspection, Normal range of motion, Non-tender, No pedal edema Musculoskeletal : Apperance: Normal Neurologic: Alert, land measurer II-XII nml as Tested, No Motor Deficits, Normal Affect, Normal Mood, No Sensory Deficits Cerebellar Function: Normal Reflexes: Normal Skin: Dry, Normal Color, Warm Lymphatic: No Adenopathy Was a procedure done? Was a procedure done?: No GI differential Dx Differential Diagnosis: Appendicitis, Esophagitis, Gastritis/PUD, Gastroenteritis, Pancreatitis, Food Poisoning, Bacterial, Viral, Stress Ulcer, Kidney Stone X-Ray, Labs, Meds, VS Vital Signs Date Time Temp Pulse Resp B/P (MAP) Pulse Ox O2 Delivery O2 Flow Rate FiO2 02/15/25 10:17 99.3 113 16 154/107 100 99.3 Lab Test 02/15/25 11:47 02/15/25 11:31 Range/Units White Blood Count 11.1 H 4.4-10.8 10^3/uL Red Blood Count 4.33 L 4.5-5.90 10^6/uL Hemoglobin 11.8 L 13.5-17.5 g/dL Hematocrit 35.8 L 41.0-53.0 % Mean Corpuscular Volume 82.5 80.0-100.0 fL Mean Corpuscular Hemoglobin 27.2 L 28.0-32.0 pg Mean Corpuscular Hemoglobin Concent 32.9 32.0-36.0 g/dL Red Cell Distribution Width 14.9 H 11.8-14.3 % Platelet Count 343 140-450 10^3/uL Mean Platelet Volume 8.4 6.9-10.8 fL Neutrophils (%) (Auto) 78.0 37.0-80.0 % Lymphocytes (%) (Auto) 12.5 10.0-50.0 % Monocytes (%) (Auto) 7.6 0.0-12.0 % Eosinophils (%) (Auto) 1.0 0.0-7.0 % Basophils (%) (Auto) 0.9 0.0-2.0 % Neutrophils # (Auto) 8.6 1.6-8.6 10 ^3/uL Lymphocytes # (Auto) 1.4 0.4-5.4 10 ^3/uL Monocytes # (Auto) 0.8 0-1.3 10 ^3/uL Eosinophils # (Auto) 0.1 0-0.8 10 ^3/uL Basophils # (Auto) 0.1 0-0.2 10 ^3/uL Nucleated Red Blood Cells 0.1 % Sodium Level 140 136-145 mmol/L Potassium Level 4.1 3.5-5.1 mmol/L Chloride Level 100 98-107 mmol/L Carbon Dioxide Level 27 20-31 mmol/L Anion Gap 13 5-15 Blood Urea Nitrogen 32 H 9-23 mg/dL Creatinine 2.84 H 0.700-1.30 mg/dL Glomerular Filtration Rate Calc 27 >90 mL/min BUN/Creatinine Ratio 11.3 10.0-20.0 Serum Glucose 151 H 74-106 mg/dL Calcium Level 9.2 8.7-10.4 mg/dL B-Type Natriuretic Peptide 30.92 0-100 pg/mL Lipase 36 12-53 U/L Urine Color Light-yellow Yellow Urine Clarity Clear Clear Urine pH 7.5 5.0-9.0 Urine Specific Fleming 1.011 1.001-1.035 Urine Protein 3+ H Negative Urine Ketones Trace Negative Urine Blood Negative Negative /uL Urine Nitrite Negative Negative Urine Bilirubin Negative Negative Urine Urobilinogen Normal Negative mg/dL Urine Leukocyte Esterase Negative Negative /uL Urine RBC 2 0 - 3 /hpf Urine Microscopic WBC 1 0-3 /HPF Urine Squamous Epithelial Cells None seen <5 /hpf Urine Bacteria None seen None Seen /hpf Urine Glucose 1+ H Normal mg/dL [place] [id number] Ph: [phone] DIAGNOSTIC IMAGING Diagnostic Imaging Report : [id number] Signed PATIENT: HEAVENLY MAZARIEGOSACCT: [id number] UNIT: [id number] : 1975 LOC: ER ROOM / BED: / AGE / SEX: 49 / M ADM STATUS: REG ER SERVICE 19 ORDERING PHYSICIAN: MAIA ANGEL NP PROCEDURE(s): CXR2 - CHEST TWO VIEWS ROUTINE REASON: fatigue, r/o pna ORDER NUMBER(s): [id number], ACCESSION NUMBER(s): [id number] CLINICAL HISTORY: fatigue, r/o pna TECHNIQUE: Chest 2 views of the chest were obtained. COMPARISON: XY CHEST XRAY 1 VIEW on DOS: 12/24/24, XY CHEST XRAY 1 VIEW on DOS: 12/23/24 FINDINGS: The heart size and pulmonary vasculature are normal. The lungs are clear. No pleural effusion is present. IMPRESSION: NO ACUTE CARDIOPULMONARY PROCESS. ATED BY: KENDRA FLORES MD DICTATED DATE/TIME: 02/15/25 1150 SIGNED BY: KENDRA FLORES MD SIGNED DATE/TIME: 02/15/25 1156 CC: X-Ray, Labs, Meds, VS Comment Patient arrives alert and oriented, ABC's intact, afebrile, vital signs stable, saturating well in room air Peripheral IV insertion+ labs were ordered. CBC was ordered to exclude anemia, blood loss, or infection. BMP was ordered to exclude electrolyte abnormalities, renal failure, dehydration, hyperglycemia Urinalysis was ordered to rule out UTI or hematuria. bnp, lipase Diagnostic imaging ordered by me and results interpreted by radiology : chest x- ray Labs in the ED showed (pertinent+ and then pertinent-) Patient was given:_. Tolerated medications with no adverse reaction. Additional MDM Review of External, Non-ED records: External records reviewed. Discussion with independent historian (EMS, family) history obtained from the patient/parents (if applicable) at bedside Chronic conditions affecting care: None Social determinants of health affecting care: None Consideration of admission (observation or admission): I considered escalation of care to admission for this patient, however given the reassuring workup, the patient is safe for outpatient management. Discussion with the Radiology: No Tests considered but not performed: Prescription medication considered but not given: 12 lead EKG interpretation: Time of 1ST Reevaluation: 12:00 Reevaluation 1ST: Unchanged Patient Education/Counseling: Diagnosis, Treatment Family Education/Counseling: Diagnosis, Treatment SEPSIS Sepsis Screen Date sepsis recognized/suspect: Feb 15, 2025 Time Sepsis recognized/suspect: 1022 Recent Procedure: No On Antibiotic Therapy: No Respiratory Rate >20: No Heart Rate >90: Yes Temp<36 C (96.8 F) or >38.3 C: No SBP <90 or MAP <65 mmHG: No New Acute Mental Status Change: No Is the patient on CPAP, BIPAP,: No Physician Orders Chest Two Views Routine (02/15/25 11:20) Vital Signs Date Time Temp Pulse Resp B/P (MAP) Pulse Ox O2 Delivery O2 Flow Rate FiO2 02/15/25 10:17 99.3 113 16 154/107 100 99.3 Laboratory Tests Test 02/15/25 11:47 White Blood Count 11.1 10^3/uL (4.4-10.8) H Departure 1 Departure Time of Disposition: 13:02 Impression: Primary Impression: Malaise Disposition: 01 HOME / SELF CARE / HOMELESS Condition: Stable Discharged With: Self Critical Care Note Critical Care Time?: No Stability Stability form required: No Heart Score Heart Score: Heart Score Response (Comments) Value History N/A 0 EKG N/A 0 Age N/A 0 Risk Factors N/A 0 Troponin N/A 0 Total 0 I personally scribed for MAIA ANGEL NP ([email or web address]) on 02/15/25 at 11:29. Electronically submitted by Patricia Washington ([facility]). I personally scribed for MAIA ANGEL NP ([email or web address]) on 02/15/25 at 11:31. Electronically submitted by Patricia Washington ([facility]). I personally scribed for MAIA ANGEL NP ([email or web address]) on 02/15/25 at 12:13. Electronically submitted by Patricia Washington ([facility]). MAIA ANGEL NP Feb 15, 2025 11:29
--- NOTE | 2025-02-15 12:00 | DVH ---
CLINICAL HISTORY: fatigue, r/o pna TECHNIQUE: Chest 2 views of the chest were obtained. COMPARISON: XY CHEST XRAY 1 VIEW on DOS: 12/24/24, XY CHEST XRAY 1 VIEW on DOS: 12/23/24 FINDINGS: The heart size and pulmonary vasculature are normal. The lungs are clear. No pleural effusion is present. IMPRESSION: NO ACUTE CARDIOPULMONARY PROCESS.
[2025-02-15 12:15] LABS: Hematocrit 35.8 % (41.0-53.0); Hemoglobin 11.8 g/dL (13.5-17.5); Mean Corpuscular Hemoglobin 27.2 pg (28.0-32.0); Mean Corpuscular Volume 82.5 fL (80.0-100.0); Nucleated Red Blood Cells % 0.1 %
[2025-02-15 12:20] LABS: Chloride 100 mmol/L (98-107); Potassium 4.1 mmol/L (3.5-5.1); Sodium 140 mmol/L (136-145)
[2025-02-15 12:21] LABS: Anion Gap 13 (5-15); Calcium 9.2 mg/dL (8.7-10.4); Carbon Dioxide 27 mmol/L (20-31)
[2025-02-15 12:26] LABS: BUN/Creatinine Ratio 11.3 (10.0-20.0); Lipase 36 U/L (12-53)
[2025-02-15 12:28] LABS: Blood Urea Nitrogen 32 mg/dL (9-23); Glucose 151 mg/dL (74-106)
[2025-02-15 12:50] LABS: Urine Protein, UAD 3+ (Negative)
[2025-02-15 13:53] VITALS: BP 146/98; PULSE 68; RESP 16; TEMP 98.7; O2SAT 100
== END 2025-02-15 13:55 | disposition home or self-care (01) ==
LOC: ER 10:15
DX: R53.81 Other malaise (principal); I12.9 Hypertensive chronic kidney disease with stage 1 through stage 4 chronic kidney disease, or unspecified chronic kidney disease; E11.22 Type 2 diabetes mellitus with diabetic chronic kidney disease; N18.4 Chronic kidney disease, stage 4 (severe); E78.5 Hyperlipidemia, unspecified; J44.9 Chronic obstructive pulmonary disease, unspecified; Z79.84 Long term (current) use of oral hypoglycemic drugs; Z79.899 Other long term (current) drug therapy
CPT/HCPCS: 36415; 71046; 80048; 81001; 83690; 83880; 85025